=== PATIENT | female | born 1980 | race Caucasian/White ===

== ENCOUNTER 2021-03-25 08:45 | Emergency (ER) | payer OTHER, SELFPAY ==
--- NOTE | ~2021-03-25 | CT_ITS ---
EXAMINATION: CT HEAD WITHOUT CONTRAST CLINICAL INFORMATION: Fall. Loss of consciousness. Rule out fracture or bleed. COMPARISON: Previous head CT June 2012 TECHNIQUE: Contiguous axial imaging was performed from the skull base to vertex without intravenous administration of contrast. This CT examination was performed using dose optimization techniques as appropriate, variously including the following: *Automated exposure control *Adjustment of mA and/or kV according to patient size (this includes techniques or standardized protocols for targeted exams where dose is matched to indication/reason for exam; i.e. extremities or head) *Use of iterative reconstruction technique DLP: 427 mGy-cm FINDINGS: There is no evidence of an extra-axial collection. There is no evidence for intra-axial or extra-axial hemorrhage. The ventricles and extra-axial CSF spaces are appropriate. Gallardo-white matter differentiation is normal. 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 This is unchanged from June 2012 exam. No other mass, mass effect or infarct is seen. Review of bone windows is normal. No skull fracture is seen. Paranasal sinuses, mastoid air cells and middle ears are clear. CT/CT head/brain wo con IMPRESSION: No acute findings.
--- NOTE | ~2021-03-25 | XR_ITS ---
EXAMINATION: XR CHEST CLINICAL INFORMATION: Fall. Chest pain. Rule out rib fracture. COMPARISON: None TECHNIQUE: 2 views of the chest were obtained. FINDINGS: The cardiac and mediastinal contours are normal. The lungs are clear. There is no pleural effusion or pneumothorax. Bony structures are unremarkable. No rib fracture is seen. XR/XR chest 2V IMPRESSION: No evidence for acute disease in the chest. No rib fracture seen.
--- NOTE | ~2021-03-25 | CT_ITS ---
EXAMINATION: CT CERVICAL SPINE WITHOUT CONTRAST CLINICAL INFORMATION: Neck pain. Loss of consciousness and fall. Rule out fracture. COMPARISON: Previous cervical spine CT June 2012 TECHNIQUE: Axial images through the cervical spine without contrast. Sagittal and coronal reconstructions the technologist workstation were performed. This CT examination was performed using dose optimization techniques as appropriate, variously including the following: *Automated exposure control *Adjustment of mA and/or kV according to patient size (this includes techniques or standardized protocols for targeted exams where dose is matched to indication/reason for exam; i.e. extremities or head) *Use of iterative reconstruction technique DLP: 428 mGy-cm FINDINGS: Bone alignment is normal. No fracture or dislocation is seen. The disc spaces are normal. Prevertebral soft tissues are normal. There is shotty cervical lymphadenopathy. Visualized lung apices are clear.. CT/CT cervical spine wo con IMPRESSION: No fracture or dislocation seen..
[2021-03-25 08:55] VITALS: BP 158/90; PULSE 92; O2SAT 100
[2021-03-25 08:56] VITALS: BP 162/89; PULSE 98; RESP 20; O2SAT 99; BMI 37.3
--- NOTE | 2021-03-25 09:06 | ECG_ITS ---
Test Reason : SYNCOPE Blood Pressure : / mmHG Vent. Rate : 088 BPM Atrial Rate : 088 BPM P-R Int : 132 ms QRS Dur : 080 ms QT Int : 358 ms P-R-T Axes : 009 010 035 degrees QTc Int : 433 ms Normal sinus rhythm Normal ECG When compared with ECG of 18-APR-2015 01:03, Borderline criteria for Anteroseptal infarct are no longer Present Referred By: Isaac Martinez Electronically Signed By:FERNANDO MARSHALL MD
--- NOTE | 2021-03-25 09:19 | ED_ITS ---
HPI - General Adult General Chief complaint: Syncope Stated complaint: UNWITNESSED FALL W/SORE NECK/BADY ACHES Time Seen by Provider: 03/25/21 09:06 Source: patient and EMS Mode of arrival: EMS Limitations: no limitations History of Present Illness HPI narrative: 41-year-old female who presents emergency department for evaluation of a syncopal episode. The patient states she has been under increased stress since she found out that her has been cheating on her. She states she has had no food to eat since Tuesday (5 days prior to evaluation). She states that she went to work today and got on the elevator. She got off on the 2nd floor and then she remembers waking up on the floor with co-worker surrounding her but has no memory of what happened prior to her passing out. Here in the emergency department she states that she is having a headache, the headache is a throbbing sensation that is located on the back her head, the headache is constant and 6/10. She is also complaining of neck pain. She states that she has been having abdominal pain for several days, she points to her lower abdomen when asked to localize the pain, the pain is a constant pressure-like sensation. She states she has had vomiting too numerous to count episodes. She denied fever, chills, chest pain, shortness of breath, dyspnea on exertion, frequency, urgency or dysuria. Related Data Previous Rx's Medication Instructions Recorded ondansetron 4 mg PO Q6-8H PRN #14 tab 03/25/21 Allergies Allergy/AdvReac Type Severity Reaction Status Date / Time morphine [MORPHINE] Allergy Mild HIVES Unverified 07/24/20 16:39 meperidine [Demerol] Allergy Unknown Verified 01/06/17 00:00 SHELLFISH Allergy Severe THROAT Uncoded 07/24/20 16:39 CLOSED From DEMEROL Allergy Mild HIVES Uncoded 07/24/20 16:39 shellfish Allergy Unknown Uncoded 01/06/17 00:00 Review of Systems Review of Systems: Yes all other systems are reviewed and are negative [facility] Past Medical History [facility] Narrative: Past medical history: Diabetes mellitus type 2 controlled by diet and weight loss, 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 The patient denies tobacco use, she drinks alcohol occasionally, she denies drug use. Social History Social History Advance Directives: Yes Advance Directives Information Provided: Yes Advance Directives on File: No Physical Exam Vital Signs: Vital Signs: Last Vital Signs Pulse 89 03/25/21 10:00 Resp 18 03/25/21 10:00 BP 135/83 03/25/21 10:00 Pulse Ox 97 03/25/21 10:00 Body Mass Index 37.3 Const: Other: Patient is in a C-collar General: cooperative, no acute distress, alert and awake Orientation/consciousness: oriented to person and oriented to place Limitations: no limitations HENMT: Other: Head is normal cephalic atraumatic, she does have tenderness with palpation over the occipital area of her head with no hematoma Head: Yes normal to inspection and Yes normocephalic Ears: external ears normal General nose exam: Normal external nose present Face and sinus: Yes normal facial exam Mouth: Normal oral and palatal mucosa present Throat: Yes posterior oropharynx normal Eyes: General: appearance normal, both eyes and all related structures Periorbital: periorbital findings normal Eyelids: Yes eyelids normal Conjunctivae: conjunctivae normal Sclerae: sclerae normal Corneas: corneas normal Pupils: Equal, round and reactive pupils present Direct Ophthalmoscopy: normal light reflex Neck: Other: Tender C-spine Neck: Yes normal visual inspection Lymphatic: no lymphadenopathy noted Chest: Chest palpation & inspection: normal inspection of the chest and normal palpation of entire chest wall Resp: Effort & Inspection: normal respiratory effort, abnormal respiratory pattern, no audible wheezes and no respiratory distress Auscultation: clear to auscultation bilaterally, no crackles, no rales, no rhonchi and no wheezes Cardio: Rate: regular rate Rhythm: regular rhythm Heart sounds: S1 normal heart sound present, S2 normal heart sound present and Murmur heart sound present GI: Inspection: No distended Palpation (GI): Soft to palpation, nontender, no guarding and No hepatosplenomegaly present Auscultation: normal bowel sounds : General: Yes no CVA tenderness Back/Spine/Pelvis: Back: no CVA tenderness Cervical Spine: normal cervical lordosis Thoracic/Lumbar Spine: thoracic and lumbar spine normal to inspection Skin: General skin exam: no rashes or lesions noted Lesions: no lesions Rashes: no rashes Wounds: no wounds Neuro: General: oriented to person and oriented to place Cranial nerves: Yes CN's II-XII intact bilaterally and Yes Equal, round and reactive pupils present Cognition (Neuro): normal cognition Motor exam (neuro): 5/5 motor strength present throughout Extrem: General: Yes normal to inspection, Yes full ROM, Yes no pedal edema and Yes no calf tenderness Psych: Appearance: grossly normal Mental Status: mental status grossly normal Speech and movement: Clear speech present Affect: normal affect Attitude: cooperative Thought process: Normal thought process present Thought content: Normal thought content present Course Course Course Narrative: 41-year-old female who presents emergency department for evaluation anorexia x5 days with nausea and vomiting, unwitnessed syncopal episode at work. The patient's physical examination did reveal tenderness with palpation of the occiputal area of her scalp as well as C-spine tenderness. I ordered laboratory evaluation to include CBC, CMP, lipase, PT/INR, PTT, chest x- ray, CT scan of the head and neck. She was ordered to get normal saline IV x2 L and Zofran 4 mg IV. 1119: 12 EKG was unremarkable. Laboratory evaluation was also unremarkable. CT scan of the head and neck were negative. Chest x-ray was unremarkable. Patient is feeling better after treatment with normal saline and Zofran. Galen beaver will be discharged home with printed and verbal instructions on syncope, nausea vomiting and dehydration. She was advised to take Zofran ODT every 6-8 hours as needed for nausea and vomiting, stay on a jourdan diet for 24 hours and to take Tylenol and ibuprofen for her pain. She is given a note not return to work until Tuesday03/30/2021. Medical Decision Making Lab Data Result diagrams: 03/25/21 09:42 03/25/21 09:42 Labs: Lab Results 03/25/21 03/25/21 03/25/21 Range/Units 09:42 09:42 09:42 WBC 11.9 H (4.8-10.8) X10*3/uL RBC 4.74 (4.20-5.50) X10*6/uL Hgb 13.7 (12.0-16.0) g/dl Hct 42.0 (37-47) % MCV 88.6 (80-98) fL MCH 28.9 (27.0-33.0) pg MCHC 32.6 (31.0-35.0) g/dl RDW 12.3 (11.0-16.0) % Plt Count 287 (160-400) X10*3/uL MPV 10.9 (9.4-12.3) fL Immature Gran % (Auto) 0.4 (0.0-0.4) % Neut % (Auto) 82.2 H (45-73) % Lymph % (Auto) 9.8 L (20-40) % [place] % (Auto) 7.1 (2-11) % Eos % (Auto) 0.2 (0-4) % Baso % (Auto) 0.3 (0-2) % Lymph # (Auto) 1.2 (1.2-4.9) X10*3/uL [place] # (Auto) 0.8 (0.1-1.2) X10*3/uL Eos # (Auto) 0.0 (0.0-0.4) X10*3/uL Baso # (Auto) 0.0 (0.0-0.2) X10*3/uL Abs Immat Gran (auto) 0.05 H (0.00-0.03) X10*3/uL Absolute Neuts (auto) 9.8 H (2.0-8.3) X10*3/uL Absolute Nucleated RBC 0.000 (0.0-0.012) X10*3/uL Nucleated RBC % (auto) 0.0 (0.0-0.2) /100WBC PT 13.6 H (10.8-13.0) SEC INR 1.1 (0.9-1.1) APTT 34.0 (24.1-38.0) SEC Sodium 139 (135-145) mmol/L Potassium 3.7 (3.3-5.1) mmol/L Chloride 104 (96-108) mmol/L Carbon Dioxide 25 (22-29) mmol/L Anion Gap 14 (12-20) BUN 14 (9-16) mg/dL Creatinine 0.76 (0.5-1.4) mg/dL Estim Creat Clear Calc 92.4 Estimated GFR > 60 Random Glucose 105 (60-115) mg/dL Calcium 9.2 (8.4-10.2) mg/dL Total Bilirubin 1.1 H (0.0-1.0) mg/dL AST 22 (5-31) U/L ALT 19 (0-31) U/L Alkaline Phosphatase 82 (39-117) U/L Troponin I High Sens (<3.5-17.0) ng/L Total Protein 7.4 (6.5-8.0) g/dL Albumin 4.4 (3.5-5.0) g/dL Lipase 31 (8-78) U/L 03/25/21 Range/Units 09:42 WBC (4.8-10.8) X10*3/uL RBC (4.20-5.50) X10*6/uL Hgb (12.0-16.0) g/dl Hct (37-47) % MCV (80-98) fL MCH (27.0-33.0) pg MCHC (31.0-35.0) g/dl RDW (11.0-16.0) % Plt Count (160-400) X10*3/uL MPV (9.4-12.3) fL Immature Gran % (Auto) (0.0-0.4) % Neut % (Auto) (45-73) % Lymph % (Auto) (20-40) % [place] % (Auto) (2-11) % Eos % (Auto) (0-4) % Baso % (Auto) (0-2) % Lymph # (Auto) (1.2-4.9) X10*3/uL [place] # (Auto) (0.1-1.2) X10*3/uL Eos # (Auto) (0.0-0.4) X10*3/uL Baso # (Auto) (0.0-0.2) X10*3/uL Abs Immat Gran (auto) (0.00-0.03) X10*3/uL Absolute Neuts (auto) (2.0-8.3) X10*3/uL Absolute Nucleated RBC (0.0-0.012) X10*3/uL Nucleated RBC % (auto) (0.0-0.2) /100WBC PT (10.8-13.0) SEC INR (0.9-1.1) APTT (24.1-38.0) SEC Sodium (135-145) mmol/L Potassium (3.3-5.1) mmol/L Chloride (96-108) mmol/L Carbon Dioxide (22-29) mmol/L Anion Gap (12-20) BUN (9-16) mg/dL Creatinine (0.5-1.4) mg/dL Estim Creat Clear Calc Estimated GFR Random Glucose (60-115) mg/dL Calcium (8.4-10.2) mg/dL Total Bilirubin (0.0-1.0) mg/dL AST (5-31) U/L ALT (0-31) U/L Alkaline Phosphatase (39-117) U/L Troponin I High Sens < 3.5 (<3.5-17.0) ng/L Total Protein (6.5-8.0) g/dL Albumin (3.5-5.0) g/dL Lipase (8-78) U/L Discharge Plan Discharge Clinical Impression: Vasovagal syncope, Nausea, Acute dehydration Closed head injury Qualifiers: Encounter type: initial encounter Qualified Code(s): S09.90XA - Unspecified injury of head, initial encounter Patient Disposition: Home, Self-Care Instructions: Syncope (ED), Head Injury (ED) Additional Instructions: Your evaluation today was unremarkable. You had a syncopal (fainting) episode most likely secondary to being dehydrated which was caused by your vomiting. Take Zofran (ondansetron) ODT 4 mg, 1 pill dissolved in your mouth every 6-8 hours as needed for nausea and vomiting. Stay on a brat diet for 24 hours (bananas, rice, applesauce, tea and toast). Take ibuprofen 200 mg pills, 3 pills every 6 hours as needed for pain. Take Tylenol (acetaminophen) 500 mg pills, 2 pills every 4 to 6 hours as needed for pain. Follow-up with your doctor in 2 days. Please return to the emergency department if your symptoms get worse or if you develop any symptoms that are concerning to you. Prescriptions: New ondansetron 4 mg tablet,disintegrating 4 mg PO Q6-8H PRN (Reason: nausea and vomiting) Qty: 14 RF: 0 Stand Alone Forms: Work/School Release
[2021-03-25] MEDS: 0.9 % Sodium Chloride 1,000 ML 999 ML IV (09:44)
[2021-03-25] MEDS: ondansetron HCL 4 MG/2 ML VIAL IVPUSH (09:45)
[2021-03-25 10:00] VITALS: BP 135/83; PULSE 89; RESP 18; O2SAT 97
[2021-03-25 10:00] LABS: MANUAL DIFF FLAG NO
[2021-03-25 10:02] LABS: Basophils Percent Auto 0.3 % (0-2); Eosinophils Percent Auto 0.2 % (0-4); Hemoglobin 13.7 g/dl (12.0-16.0); Imm Gran Abs Auto 0.05 X10*3/uL (0.00-0.03); Imm Gran Pct Auto 0.4 % (0.0-0.4); Lymphocytes Absolute Auto 1.2 X10*3/uL (1.2-4.9); Lymphocytes Percent Auto 9.8 % (20-40); Mean Corpuscular HGB Conc 32.6 g/dl (31.0-35.0); Mean Corpuscular Hemoglobin 28.9 pg (27.0-33.0); Mean Corpuscular Volume 88.6 fL (80-98); Mean Platelet Volume 10.9 fL (9.4-12.3); Monocytes Absolute Auto 0.8 X10*3/uL (0.1-1.2); Monocytes Percent Auto 7.1 % (2-11); Neutrophils Absolute Auto 9.8 X10*3/uL (2.0-8.3); Neutrophils Percent Auto 82.2 % (45-73); Platelet Count 287 X10*3/uL (160-400); Red Blood Count 4.74 X10*6/uL (4.20-5.50); Red Cell Distribution Width 12.3 % (11.0-16.0); White Blood Count 11.9 X10*3/uL (4.8-10.8)
[2021-03-25 10:12] LABS: INTERNATIONAL NORM RATIO 1.1 (0.9-1.1); Prothrombin Time 13.6 SEC (10.8-13.0)
[2021-03-25 10:28] LABS: Alanine Aminotransferase 19 U/L (0-31); Albumin Level 4.4 g/dL (3.5-5.0); Alkaline Phosphatase 82 U/L (39-117); Anion Gap 14 (12-20); Aspartate Amino Transferase 22 U/L (5-31); Bilirubin Total 1.1 mg/dL (0.0-1.0); Blood Urea Nitrogen 14 mg/dL (9-16); Calcium 9.2 mg/dL (8.4-10.2); Carbon Dioxide 25 mmol/L (22-29); Chloride 104 mmol/L (96-108); Creatinine Clr Calc Pharmacy 92.4; Estimated Glomerular Filt Rate > 60; Glucose Random 105 mg/dL (60-115); Lipase 31 U/L (8-78); Potassium 3.7 mmol/L (3.3-5.1); Sodium 139 mmol/L (135-145); Total Protein 7.4 g/dL (6.5-8.0)
[2021-03-25 10:30] LABS: Troponin-I High Sensitivity < 3.5 ng/L (<3.5-17.0)
[2021-03-25 11:35] LABS: Glucose Urine UA NEG (NEG); Leukocyte Esterase Urine NEG (NEG); Nitrite Urine NEG (NEG); Specific Gravity - Urine 1.015 (1.005-1.025); Urine Blood NEG (NEG); Urine Ketones 15 MG/DL (NEG); Urine Protein NEG (NEG-TRACE)
[2021-03-25 11:37] LABS: Appearance Urine CLEAR; Color Urine YELLOW
== END 2021-03-25 11:53 | disposition home or self-care (01) ==
PROVIDERS: Emergency Provider Emergency Medicine Emergency Medical Services; PCP Internal Medicine
DX: S09.90XA Unspecified injury of head, initial encounter (principal); R55 Syncope and collapse; E86.0 Dehydration; M54.2 Cervicalgia; G44.309 Post-traumatic headache, unspecified, not intractable; W18.30XA Fall on same level, unspecified, initial encounter; Y93.9 Activity, unspecified; Y92.9 Unspecified place or not applicable; Y99.9 Unspecified external cause status; Z79.899 Other long term (current) drug therapy
CPT/HCPCS: 36415; 70450; 71046; 72125; 80053; 81003; 83690; 84484; 85025; 85610; 85730; 93005; 96365; 96375; 99284; J2405

== ENCOUNTER 2022-12-14 13:41 | Emergency (ER) | payer OTHER, SELFPAY ==
--- NOTE | 2022-12-14 14:08 | ED_ITS ---
HPI - General Adult General Chief complaint: General Medical <Zhane Pollock CNP - Last Filed: 12/14/22 14:14> Stated complaint: high bp <Zhane Pollock CNP - Last Filed: 12/14/22 14:14> Time Seen by Provider: 12/14/22 16:03 <Zhane Pollock CNP - Last Filed: 12/14/22 14:14> Source: patient <Azam JosephDO giana - Last Filed: 12/14/22 18:09> Mode of arrival: ambulatory <Azam Joseph DO - Last Filed: 12/14/22 18:09> Limitations: no limitations <Azam Joseph DO - Last Filed: 12/14/22 18:09> History of Present Illness HPI narrative: 42-year-old female presents emergency department with multiple complaints. She states she woke up feeling strange. 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 Patient recent did increase her metoprolol. She denies any fevers chills neck stiffness chest pain cough or runny nose. States she does have associated headache she did take some ibuprofen approximately 4 hours prior to my evaluation. Patient does have a history of headaches. <Azam Joseph DO - Last Filed: 12/14/22 18:09> Onset (ago): hour(s) <Azam Joseph DO - Last Filed: 12/14/22 18:09> Related Data Home medications: Previous Rx's Medication Instructions Recorded ondansetron 4 mg disintegrating 4 mg PO Q6-8H PRN nausea and 03/25/21 tablet vomiting #14 tabs <Zhane Pollock CNP - Last Filed: 12/14/22 14:14> Allergies/adverse reactions: Allergies Allergy/AdvReac Type Severity Reaction Status Date / Time morphine [MORPHINE] Allergy Mild HIVES Unverified 12/14/22 13:38 meperidine [Demerol] Allergy Unknown Verified 12/14/22 13:38 SHELLFISH Allergy Severe THROAT Uncoded 12/14/22 13:38 CLOSED From DEMEROL Allergy Mild HIVES Uncoded 12/14/22 13:38 shellfish Allergy Unknown Uncoded 12/14/22 13:38 <Zhane Pollock CNP - Last Filed: 12/14/22 14:14> Review of Systems Review of Systems: Review of systems: General: Patient denies any fever chills recent illness or falls Musculoskeletal: Denies back pain or body aches or other injuries HEENT: headache denies, runny nose, ear pain Respiratory: denies shortness of breath, cough Cardiovascular: no chest pain or palpitations : denies dysuria, frequency Abdomen: nausea no vomiting denies abdominal pain Extremities: no swelling, no pain Skin: no diaphoresis <Azam Joseph DO - Last Filed: 12/14/22 18:09> Yes all other systems are reviewed and are negative <Azam Joseph DO - Last Filed: 12/14/22 18:09> PMFSH Social History Social History: Social History (System 12/14/22 @ 13:38 by Vidya Davis) Advance Directives: No <Zhane Pollock CNP - Last Filed: 12/14/22 14:14> Physical Exam ED Vital Signs: Vital Signs - 24 hr 12/14/22 14:09 12/14/22 16:11 Temperature 97.4 F Pulse Rate 78 74 Respiratory Rate 18 Blood Pressure 146/103 H 146/84 H Pulse Oximetry 100 Oxygen Delivery Method Room Air BMI result Body Mass Index 43.0 <Zhane Pollock CNP - Last Filed: 12/14/22 14:14> Vital Signs - 24 hr 12/14/22 14:09 12/14/22 16:11 Temperature 97.4 F Pulse Rate 78 74 Respiratory Rate 18 Blood Pressure 146/103 H 146/84 H Pulse Oximetry 100 Oxygen Delivery Method Room Air BMI result Body Mass Index 43.0 <Azam Joseph DO - Last Filed: 12/14/22 18:09> Neurological exam: CN II- XII tested. Patient is alert and oriented to person place and time. Patient has no dysphagia or dysarthia, denies good vision in all four vision price no nystagmus on exam, good strength to upper and lower extremities with normal reflexes to brachioradialis, wrist, patella and achilles. Negative romberg, good finger to nose and heel to chin. General: Well-appearing well-nourished in no signs of distress HEENT: Normocephalic atraumatic Neck: No signs of JVD, no masses no tenderness or lymphadenopathy Cardiovascular: Regular rate and rhythm Respiratory: Clear to auscultation bilaterally Abdomen: Soft nontender no masses Extremities: Normal pedal pulses no signs of edema Skin: Dry warm no rashes Back: No tenderness full ROM <Azam Joseph DO - Last Filed: 12/14/22 18:09> Course Course Course Narrative: This is an RME: Additional HPI, ROS, PE not included below will be deferred to primary provider. Patient is a 42-year-old female who presents emergency department for evaluation of hypertension, severe diffuse headache, dizziness, nausea/ dry heaves, was advised by PCP to come to ED due to hx uncontrolled HTN. Headache since 544 unrelieved with ibuprofen, progressively worsening. Patient had metoprolol succinate increased from 25mg to 50mg 12/06/22, has not checked BP since dosage change. Denies chest pain, shortness of breath, vision changes, neck pain, vomiting. Denies hx of headaches/ migraine. Denies , s/p hysterectomy. Plan: labs, EKG <Zhane Pollock CNP - Last Filed: 12/14/22 14:14> Medications Administered Discontinued Medications Generic Name Dose Route Start Last Admin Trade Name Samanq PRN Reason Stop Dose Admin Acetaminophen 650 mg 12/14/22 16:10 12/14/22 16:36 Acetaminophen 325 Mg Tablet PO 12/14/22 16:11 650 mg ONCE ONE Administration Diphenhydramine HCl 25 mg 12/14/22 16:10 12/14/22 16:37 Diphenhydramine Hcl 50 Mg/Ml Vial IVPUSH 12/14/22 16:11 25 mg ONCE ONE Administration Sodium Chloride 1,000 mls @ 999 mls/hr 12/14/22 16:15 12/14/22 16:36 Ns IV 12/14/22 17:15 999 mls/hr .Q1H1M VIDAL Administration Ketorolac Tromethamine 15 mg 12/14/22 16:10 12/14/22 16:37 Ketorolac Tromethamine 15 Mg/Ml Vial IVPUSH 12/14/22 16:11 15 mg ONCE ONE Administration Metoclopramide HCl 10 mg 12/14/22 16:10 12/14/22 16:37 Metoclopramide Hcl 10 Mg/2 Ml Vial IVPUSH 12/14/22 16:11 10 mg ONCE ONE Administration <Zhane Young Phill, BIOMASS TECHNICIAN - Last Filed: 12/14/22 14:14> Medications Administered Discontinued Medications Generic Name Dose Route Start Last Admin Trade Name Lilian PRN Reason Stop Dose Admin Acetaminophen 650 mg 12/14/22 16:10 12/14/22 16:36 Acetaminophen 325 Mg Tablet PO 12/14/22 16:11 650 mg ONCE ONE Administration Diphenhydramine HCl 25 mg 12/14/22 16:10 12/14/22 16:37 Diphenhydramine Hcl 50 Mg/Ml Vial IVPUSH 12/14/22 16:11 25 mg ONCE ONE Administration Sodium Chloride 1,000 mls @ 999 mls/hr 12/14/22 16:15 12/14/22 16:36 Ns IV 12/14/22 17:15 999 mls/hr .Q1H1M VIDAL Administration Ketorolac Tromethamine 15 mg 12/14/22 16:10 12/14/22 16:37 Ketorolac Tromethamine 15 Mg/Ml Vial IVPUSH 12/14/22 16:11 15 mg ONCE ONE Administration Metoclopramide HCl 10 mg 12/14/22 16:10 12/14/22 16:37 Metoclopramide Hcl 10 Mg/2 Ml Vial IVPUSH 12/14/22 16:11 10 mg ONCE ONE Administration <Azam Joseph DO - Last Filed: 12/14/22 18:09> Medical Decision Making Medical Decision Making MDM Narrative: Labs unremarkable blood pressure is within normal limits I will add on COVID flu and RSV I will give the patient Reglan Benadryl Toradol and Tylenol and reassess. 1807Covid flu and RSV are all negative. She is feeling much better. I will send home. <Azam Joseph DO - Last Filed: 12/14/22 18:09> Differential Diagnosis Differential Diagnoses: The differential diagnosis associated with the presentation includes <Azam Joseph DO - Last Filed: 12/14/22 18:09> Headache migraine blood pressure related to the related dehydrated , Headache unlikely mass has had CT in the past unlikely menigitis or infectios with no fever and non toxic appearance. <Azam Joseph DO - Last Filed: 12/14/22 18:09> Admission/Observation Consideration of admission/observation: Escalation of care including admission/observation considered <Azam Jospeh DO - Last Filed: 12/14/22 18:09> Lab Data MDM Lab Attestation statement: I reviewed the patient's lab results. <Azam Joseph DO - Last Filed: 12/14/22 18:09> Result Diagrams: 12/14/22 14:40 12/14/22 14:40 <Zhane Pollock BIOMASS TECHNICIAN - Last Filed: 12/14/22 14:14> Labs: Lab Results 12/14/22 12/14/22 12/14/22 Range/Units 14:40 14:40 14:40 WBC 13.3 H (4.8-10.8) X10*3/uL RBC 4.77 (4.20-5.50) X10*6/uL Hgb 13.8 (12.0-16.0) g/dl Hct 41.6 (37.0-47.0) % MCV 87.2 (80.0-98.0) fL MCH 28.9 (27.0-33.0) pg MCHC 33.2 (31.0-35.0) g/dl RDW 12.2 (11.0-16.0) % Plt Count 309 (160-400) X10*3/uL MPV 10.5 (9.4-12.3) fL Immature Gran % (Auto) 0.6 H (0.0-0.4) % Neut % (Auto) 83.8 H (45-73) % Lymph % (Auto) 10.4 L (20-40) % [place] % (Auto) 4.5 (2-11) % Eos % (Auto) 0.2 (0-4) % Baso % (Auto) 0.5 (0-2) % Lymph # (Auto) 1.4 (1.2-4.9) X10*3/uL [place] # (Auto) 0.6 (0.1-1.2) X10*3/uL Eos # (Auto) 0.0 (0.0-0.4) X10*3/uL Baso # (Auto) 0.1 (0.0-0.2) X10*3/uL Abs Immat Gran (auto) 0.08 H (0.00-0.03) X10*3/uL Absolute Neuts (auto) 11.1 H (2.0-8.3) x10*3/uL Absolute Nucleated RBC 0.000 (0.0-0.012) X10*3/uL Nucleated RBC % (auto) 0.0 (0.0-0.2) /100WBC Sodium 143 (135-145) mmol/L Potassium 4.0 (3.3-5.1) mmol/L Chloride 107 (96-108) mmol/L Carbon Dioxide 26 (22-29) mmol/L Anion Gap 14 (12-20) BUN 9 (9-16) mg/dL Creatinine 0.70 (0.5-1.4) mg/dL Estim Creat Clear Calc 107.8 Estimated GFR > 60 Random Glucose 111 (60-115) mg/dL Calcium 9.3 (8.4-10.2) mg/dL Total Bilirubin 0.4 (0.0-1.0) mg/dL AST 12 (5-31) U/L ALT 16 (0-31) U/L Alkaline Phosphatase 98 (39-117) U/L Troponin I High Sens < 3.5 (<3.5-17.0) ng/L Total Protein 7.1 (6.5-8.0) g/dL Albumin 4.3 (3.5-5.0) g/dL Urine Color Urine Appearance Urine pH (5.0-9.0) Ur Specific [place] (1.005-1.025) Urine Protein (Neg-Trace) mg/dL Urine Glucose (UA) (Negative) mg/dL Urine Ketones (Negative) mg/dL Urine Blood (Negative) Urine Nitrite (Negative) Ur Leukocyte Esterase (Negative) Urine RBC (0-2) /HPF Urine WBC (0-5) /HPF Ur Squamous Epith Cells (0-2) /HPF Urine Bacteria (None Seen) Hyaline Casts (0-2) /LPF Influenza Type A (PCR) (Negative) Influenza Type B (PCR) (Negative) RSV RNA Qual (PCR) (Negative) SARS-CoV-2 RNA (RT-PCR) (Negative) 12/14/22 12/14/22 Range/Units 14:40 17:11 WBC (4.8-10.8) X10*3/uL RBC (4.20-5.50) X10*6/uL Hgb (12.0-16.0) g/dl Hct (37.0-47.0) % MCV (80.0-98.0) fL MCH (27.0-33.0) pg MCHC (31.0-35.0) g/dl RDW (11.0-16.0) % Plt Count (160-400) X10*3/uL MPV (9.4-12.3) fL Immature Gran % (Auto) (0.0-0.4) % Neut % (Auto) (45-73) % Lymph % (Auto) (20-40) % [place] % (Auto) (2-11) % Eos % (Auto) (0-4) % Baso % (Auto) (0-2) % Lymph # (Auto) (1.2-4.9) X10*3/uL [place] # (Auto) (0.1-1.2) X10*3/uL Eos # (Auto) (0.0-0.4) X10*3/uL Baso # (Auto) (0.0-0.2) X10*3/uL Abs Immat Gran (auto) (0.00-0.03) X10*3/uL Absolute Neuts (auto) (2.0-8.3) x10*3/uL Absolute Nucleated RBC (0.0-0.012) X10*3/uL Nucleated RBC % (auto) (0.0-0.2) /100WBC Sodium (135-145) mmol/L Potassium (3.3-5.1) mmol/L Chloride (96-108) mmol/L Carbon Dioxide (22-29) mmol/L Anion Gap (12-20) BUN (9-16) mg/dL Creatinine (0.5-1.4) mg/dL Estim Creat Clear Calc Estimated GFR Random Glucose (60-115) mg/dL Calcium (8.4-10.2) mg/dL Total Bilirubin (0.0-1.0) mg/dL AST (5-31) U/L ALT (0-31) U/L Alkaline Phosphatase (39-117) U/L Troponin I High Sens (<3.5-17.0) ng/L Total Protein (6.5-8.0) g/dL Albumin (3.5-5.0) g/dL Urine Color Yellow Urine Appearance Clear Urine pH 7.5 (5.0-9.0) Ur Specific [place] <= 1.005 (1.005-1.025) Urine Protein Negative (Neg-Trace) mg/dL Urine Glucose (UA) Negative (Negative) mg/dL Urine Ketones Negative (Negative) mg/dL Urine Blood Negative (Negative) Urine Nitrite Negative (Negative) Ur Leukocyte Esterase Moderate (2+) H (Negative) Urine RBC 0-2 (0-2) /HPF Urine WBC 0-5 (0-5) /HPF Ur Squamous Epith Cells 3-5 (0-2) /HPF Urine Bacteria None Seen (None Seen) Hyaline Casts 0-2 (0-2) /LPF Influenza Type A (PCR) NEGATIVE (Negative) Influenza Type B (PCR) NEGATIVE (Negative) RSV RNA Qual (PCR) NEGATIVE (Negative) SARS-CoV-2 RNA (RT-PCR) NEGATIVE (Negative) <Zhane Pollock, NETO - Last Filed: 12/14/22 14:14> Lab Results 12/14/22 12/14/22 12/14/22 Range/Units 14:40 14:40 14:40 WBC 13.3 H (4.8-10.8) X10*3/uL RBC 4.77 (4.20-5.50) X10*6/uL Hgb 13.8 (12.0-16.0) g/dl Hct 41.6 (37.0-47.0) % MCV 87.2 (80.0-98.0) fL MCH 28.9 (27.0-33.0) pg MCHC 33.2 (31.0-35.0) g/dl RDW 12.2 (11.0-16.0) % Plt Count 309 (160-400) X10*3/uL MPV 10.5 (9.4-12.3) fL Immature Gran % (Auto) 0.6 H (0.0-0.4) % Neut % (Auto) 83.8 H (45-73) % Lymph % (Auto) 10.4 L (20-40) % [place] % (Auto) 4.5 (2-11) % Eos % (Auto) 0.2 (0-4) % Baso % (Auto) 0.5 (0-2) % Lymph # (Auto) 1.4 (1.2-4.9) X10*3/uL [place] # (Auto) 0.6 (0.1-1.2) X10*3/uL Eos # (Auto) 0.0 (0.0-0.4) X10*3/uL Baso # (Auto) 0.1 (0.0-0.2) X10*3/uL Abs Immat Gran (auto) 0.08 H (0.00-0.03) X10*3/uL Absolute Neuts (auto) 11.1 H (2.0-8.3) x10*3/uL Absolute Nucleated RBC 0.000 (0.0-0.012) X10*3/uL Nucleated RBC % (auto) 0.0 (0.0-0.2) /100WBC Sodium 143 (135-145) mmol/L Potassium 4.0 (3.3-5.1) mmol/L Chloride 107 (96-108) mmol/L Carbon Dioxide 26 (22-29) mmol/L Anion Gap 14 (12-20) BUN 9 (9-16) mg/dL Creatinine 0.70 (0.5-1.4) mg/dL Estim Creat Clear Calc 107.8 Estimated GFR > 60 Random Glucose 111 (60-115) mg/dL Calcium 9.3 (8.4-10.2) mg/dL Total Bilirubin 0.4 (0.0-1.0) mg/dL AST 12 (5-31) U/L ALT 16 (0-31) U/L Alkaline Phosphatase 98 (39-117) U/L Troponin I High Sens < 3.5 (<3.5-17.0) ng/L Total Protein 7.1 (6.5-8.0) g/dL Albumin 4.3 (3.5-5.0) g/dL Urine Color Urine Appearance Urine pH (5.0-9.0) Ur Specific [place] (1.005-1.025) Urine Protein (Neg-Trace) mg/dL Urine Glucose (UA) (Negative) mg/dL Urine Ketones (Negative) mg/dL Urine Blood (Negative) Urine Nitrite (Negative) Ur Leukocyte Esterase (Negative) Urine RBC (0-2) /HPF Urine WBC (0-5) /HPF Ur Squamous Epith Cells (0-2) /HPF Urine Bacteria (None Seen) Hyaline Casts (0-2) /LPF Influenza Type A (PCR) (Negative) Influenza Type B (PCR) (Negative) RSV RNA Qual (PCR) (Negative) SARS-CoV-2 RNA (RT-PCR) (Negative) 12/14/22 12/14/22 Range/Units 14:40 17:11 WBC (4.8-10.8) X10*3/uL RBC (4.20-5.50) X10*6/uL Hgb (12.0-16.0) g/dl Hct (37.0-47.0) % MCV (80.0-98.0) fL MCH (27.0-33.0) pg MCHC (31.0-35.0) g/dl RDW (11.0-16.0) % Plt Count (160-400) X10*3/uL MPV (9.4-12.3) fL Immature Gran % (Auto) (0.0-0.4) % Neut % (Auto) (45-73) % Lymph % (Auto) (20-40) % [place] % (Auto) (2-11) % Eos % (Auto) (0-4) % Baso % (Auto) (0-2) % Lymph # (Auto) (1.2-4.9) X10*3/uL [place] # (Auto) (0.1-1.2) X10*3/uL Eos # (Auto) (0.0-0.4) X10*3/uL Baso # (Auto) (0.0-0.2) X10*3/uL Abs Immat Gran (auto) (0.00-0.03) X10*3/uL Absolute Neuts (auto) (2.0-8.3) x10*3/uL Absolute Nucleated RBC (0.0-0.012) X10*3/uL Nucleated RBC % (auto) (0.0-0.2) /100WBC Sodium (135-145) mmol/L Potassium (3.3-5.1) mmol/L Chloride (96-108) mmol/L Carbon Dioxide (22-29) mmol/L Anion Gap (12-20) BUN (9-16) mg/dL Creatinine (0.5-1.4) mg/dL Estim Creat Clear Calc Estimated GFR Random Glucose (60-115) mg/dL Calcium (8.4-10.2) mg/dL Total Bilirubin (0.0-1.0) mg/dL AST (5-31) U/L ALT (0-31) U/L Alkaline Phosphatase (39-117) U/L Troponin I High Sens (<3.5-17.0) ng/L Total Protein (6.5-8.0) g/dL Albumin (3.5-5.0) g/dL Urine Color Yellow Urine Appearance Clear Urine pH 7.5 (5.0-9.0) Ur Specific [place] <= 1.005 (1.005-1.025) Urine Protein Negative (Neg-Trace) mg/dL Urine Glucose (UA) Negative (Negative) mg/dL Urine Ketones Negative (Negative) mg/dL Urine Blood Negative (Negative) Urine Nitrite Negative (Negative) Ur Leukocyte Esterase Moderate (2+) H (Negative) Urine RBC 0-2 (0-2) /HPF Urine WBC 0-5 (0-5) /HPF Ur Squamous Epith Cells 3-5 (0-2) /HPF Urine Bacteria None Seen (None Seen) Hyaline Casts 0-2 (0-2) /LPF Influenza Type A (PCR) NEGATIVE (Negative) Influenza Type B (PCR) NEGATIVE (Negative) RSV RNA Qual (PCR) NEGATIVE (Negative) SARS-CoV-2 RNA (RT-PCR) NEGATIVE (Negative) <Azam Joseph DO - Last Filed: 12/14/22 18:09> External Record Review External record reviewed: Inpatient record <Azam Joseph DO - Last Filed: 12/14/22 18:09> Prescription Management I considered prescription management with: Other <Azam Joseph DO - Last Filed: 12/14/22 18:09> Discharge Plan Discharge Clinical Impression: Nausea & vomiting, Headache <Zhane Pollock CNP - Last Filed: 12/14/22 14:14> Patient Disposition: Home, Self-Care <Zhane Pollock CNP - Last Filed: 12/14/22 14:14> Instructions: Acute Nausea and Vomiting (ED), Acute Headache (ED), General Headache (ED) <Zhane Pollock CNP - Last Filed: 12/14/22 14:14> Additional Instructions: Please call to follow up with your doctor. If you have any other concerns please return to the ED. <Zhane Pollock CNP - Last Filed: 12/14/22 14:14> Prescriptions: No Action ondansetron 4 mg tablet,disintegrating 4 mg PO Q6-8H PRN (Reason: nausea and vomiting) Qty: 14 0RF <Zhane Pollock CNP - Last Filed: 12/14/22 14:14> Referrals: Gaston Gomez MD [Primary Care Provider] - (Please call to follow up. Your blood pressure was not normal but also not abnormally high. Your labs were normal as well. ) <Zhane Pollock CNP - Last Filed: 12/14/22 14:14> Stand Alone Forms: Work/School Release <Zhane Pollock CNP - Last Filed: 12/14/22 14:14>
[2022-12-14 14:09] VITALS: BP 146/103; PULSE 78; RESP 18; TEMP 36.3; O2SAT 100; BMI 43.0
--- NOTE | 2022-12-14 14:12 | ECG_ITS ---
Test Reason : hypertension Blood Pressure : / mmHG Vent. Rate : 079 BPM Atrial Rate : 079 BPM P-R Int : 156 ms QRS Dur : 088 ms QT Int : 372 ms P-R-T Axes : 042 007 040 degrees QTc Int : 426 ms Normal sinus rhythm Minimal voltage criteria for LVH, may be normal variant ( [place] product ) Borderline ECG When compared with ECG of 25-MAR-2021 09:13, No significant change was found Referred By: Zhane Pollock Electronically Signed By:FERNANDO MARSHALL MD
[2022-12-14 14:45] LABS: MANUAL DIFF FLAG NO
[2022-12-14 14:48] LABS: Appearance Urine Clear; Basophils Absolute Auto 0.1 X10*3/uL (0.0-0.2); Basophils Percent Auto 0.5 % (0-2); Color Urine Yellow; Eosinophils Percent Auto 0.2 % (0-4); Glucose Urine UA Negative (Negative); Hematocrit 41.6 % (37.0-47.0); Hemoglobin 13.8 g/dl (12.0-16.0); Imm Gran Abs Auto 0.08 X10*3/uL (0.00-0.03); Imm Gran Pct Auto 0.6 % (0.0-0.4); Leukocyte Esterase Urine Moderate (2+) (Negative); Lymphocytes Absolute Auto 1.4 X10*3/uL (1.2-4.9); Lymphocytes Percent Auto 10.4 % (20-40); Mean Corpuscular HGB Conc 33.2 g/dl (31.0-35.0); Mean Corpuscular Hemoglobin 28.9 pg (27.0-33.0); Mean Corpuscular Volume 87.2 fL (80.0-98.0); Mean Platelet Volume 10.5 fL (9.4-12.3); Monocytes Absolute Auto 0.6 X10*3/uL (0.1-1.2); Monocytes Percent Auto 4.5 % (2-11); Neutrophils Absolute Auto 11.1 x10*3/uL (2.0-8.3); Neutrophils Percent Auto 83.8 % (45-73); Nitrite Urine Negative (Negative); PH 7.5 (5.0-9.0); Platelet Count 309 X10*3/uL (160-400); Red Blood Count 4.77 X10*6/uL (4.20-5.50); Red Cell Distribution Width 12.2 % (11.0-16.0); Specific Gravity - Urine <= 1.005 (1.005-1.025); Urine Blood Negative (Negative); Urine Ketones Negative (Negative); Urine Protein Negative (Neg-Trace); White Blood Count 13.3 X10*3/uL (4.8-10.8)
[2022-12-14 14:49] LABS: UMIC TRIGGER UACC YES
--- OUTSIDE RECORDS SUMMARY | 2022-12-14 14:51 | XMS_ITS | Continuity of Care Document ---
:1980 Author Organization [facility] Address [address] [place] [address]- Care Team Providers Name Role Phone Gaston Gomez MD Primary Care Physician [place] [facility] [place] 12[place]04/20 [facility] [address] [place], [place] [address] Attending Physician: Gaston Gomez MD Allergies, Adverse Reactions, Alerts Substance Reaction Severity Status morphine Active shellfish Hives Active cranberry Hives Active Immunizations Given and Recorded Vaccine Date Status Refusal Reason influenza virus vaccine, inactivated1 11/10/18 Given influenza virus vaccine, inactivated2 08/07/17 Recorded influenza virus vaccine, inactivated 09/22/15 Given influenza virus vaccine, inactivated3 08/01/14 Given tetanus/diphtheria/pertussis, acel(Tdap) 06/10/13 Given FluLaval (oldterm) 08/11/09 Given Hepatitis B Vaccine (old term)4 08/16/08 Given Hepatitis B Vaccine (old term) 06/27/08 Given tetanus-diphtheria toxoids (Td)5 09/08/07 Given 1Result Comment: [11/10/2018] given w/out incident [facility]:[id number] History: per pt. received @ [id number] Comment: [08/01/2014] given w/out [id number] Note: 2ND HEP B [id number] Note: mass bio Medications loratadine 10 mg oral tablet 10 mg, 1, tablet, By Mouth, Daily, # 14 tablet, Refills 0, Tot. Refills 0, Maintenance, 12/09/19 11:00:00 EST, Route to Pharmacy Electronically, [facility] #[id number], 154, cm, 12/09/19 10:31:00 EST, Height, 92.6, kg, 12/09/19 10:31:00 EST, Dry... Start Date: 12/09/19 Stop Date: 12/23/19 Status: OrderedZithromax Z-Nj 250 mg oral tablet See Instructions, as directed on package labeling, # 1 pack/packet, 0 Refills, Maintenance, 12/01/2109:45:00 EST, [facility] #[id number], Partial fill upon patient request if the prescription is for a schedule II opioid drug., 154, cm, 12/23/19... 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 Belem Blount IV Social History Social History Type Response Smoking Status Never (less than 100 in life time) entered on: 12/07/19 Sex
--- OUTSIDE RECORDS SUMMARY | 2022-12-14 14:51 | XMS_ITS | Continuity of Care Document ---
:1980 Author Organization [facility] Address [address] [place] [address]- Care Team Providers Name Role Phone Gaston Gomez MD Primary Care Physician Encounter [facility] [place] Date(s): 12/01/20 - 12/31/20 [facility] [address] [place], [place] [address] Allergies, Adverse Reactions, Alerts Substance Reaction Severity [...] Given 1Result Comment: [11/10/2018] given w/out incident ndc:[id number] History: per pt. received @ [id number] Comment: [08/01/2014] given w/out [id number] Note: 2ND HEP B [id number] Note: mass bio Medications loratadine 10 mg oral tablet 10 mg, 1, tablet, By Mouth, Daily, # 14 tablet, Refills 0, Tot. Refills 0, Maintenance, 12/09/19 11:00:00 EST, Route to Pharmacy Electronically, [facility] #[id number], 154, cm, 12/09/19 10:31:00 EST, Height, 92.6, kg, 12/09/19 10:31:00 EST, Dry... Start Date: 12/09/19 Stop Date: 12/23/19 Status: OrderedZithromax Z-Nj 250 mg oral tablet See Instructions, as directed on package labeling, # 1 pack/packet, 0 Refills, Maintenance, 12/01/2109:45:00 EST, [facility] #[id number], Partial fill upon patient request if the [...]
--- OUTSIDE RECORDS SUMMARY | 2022-12-14 14:51 | XMS_ITS | Continuity of Care Document ---
:1980 Author Organization [facility] Address [address] [place] [address]- Care Team Providers Name Role Phone Gaston Gomez MD Primary Care Physician Encounter [facility] [place] Date(s): 12/09/19 - 12/16/19 [facility] [address] [place] [address]- [facility] Attending Physician: César Staton MD Allergies, Adverse Reactions, Alerts Substance Reaction [...] Given 1Result Comment: [11/10/2018] given w/out incident ndc:[id number] History: per pt. received @ [id number] Comment: [08/01/2014] given w/out [id number] Note: 2ND HEP B [id number] Note: mass bio Medications loratadine 10 mg oral tablet 10 mg, 1, tablet, By Mouth, Daily, # 14 tablet, Refills 0, Tot. Refills 0, Maintenance, 12/09/19 11:00:00 EST, Route to Pharmacy Electronically, [facility] #[id number], 154, cm, 12/09/19 10:31:00 EST, Height, 92.6, kg, 12/09/19 10:31:00 EST, Dry... Start Date: 12/09/19 Stop Date: 12/23/19 Status: Ordered Problem List Condition Effective Dates [...] by endovascular surgeon Dr. Belem Blount IV Vital Signs Most recent to oldest [Reference Range]: 1 Height 154 cm (12/09/19 10:31 AM) Weight 92.6 kg (12/09/19 10:31 AM) Oxygen Saturation [94-100 %] 100 % (12/09/19 10:31 AM) Pulse Rate [55-90 bpm] 81 bpm (12/09/19 10:31 AM) Body Mass Index [18.5-24.99] 39.05 *>HHI* (12/09/19 10:31 AM) Blood Pressure [90-138/55-84 mm Hg] 141/104 mm Hg *H* (12/09/19 10:31 AM) Respiratory Rate [16-30 br/min] 18 br/min (12/09/19 10:31 AM) Temperature [96.8-100.4 DegF] 98.2 DegF (12/09/19 10:31 AM) Mode of Delivery (Oxygen) Room air (12/09/19 10:31 AM) Blood pressure sites Arm, right (12/09/19 10:31 AM) Temperature Route Oral (12/09/19 10:31 AM) Dry Weight 92.6 kg (12/09/19 10:31 AM) Weight Obtained Via Standing scale (12/09/19 10:31 AM) Dry Weight Obtained Via Standing scale (12/09/19 10:31 AM) Social History Social History Type Response Smoking Status Never (less than 100 in life time) entered on: 12/07/19 Sex
--- OUTSIDE RECORDS SUMMARY | 2022-12-14 14:51 | XMS_ITS | Continuity of Care Document ---
:1980 Author Organization [facility] Address [address] [place] [address]- Care Team Providers Name Role Phone Gaston Gomez MD Primary Care Physician [facility] Date(s): 03/16/22 - 04/15/22 [facility] [address] [place], [place] [address] Allergies, Adverse Reactions, Alerts Substance Reaction Severity Status morphine Active shellfish Hives Active cranberry Hives Active Immunizations Given and Recorded Vaccine Date Status Refusal Reason SARS-CoV-2 (COVID-19) mRNA-1273 vaccine 11/14/21 Recorded influenza virus vaccine, inactivated 09/12/21 Recorded influenza virus vaccine, inactivated1 11/10/18 Given influenza virus vaccine, inactivated2 08/07/17 Recorded influenza virus vaccine, inactivated 09/22/15 Given influenza virus vaccine, inactivated3 08/01/14 Given SARS-CoV-2 (COVID-19) Ad26 vaccine 03/08/21 Given hepatitis B adult vaccine 09/24/15 Recorded tetanus/diphtheria/pertussis, acel(Tdap) 06/10/13 Given FluLaval (oldterm) 08/11/09 Given Hepatitis B Vaccine (old term)4 08/16/08 Given Hepatitis B Vaccine (old term) 06/27/08 Given tetanus-diphtheria toxoids (Td)5 09/08/07 Given 1Result Comment: [11/10/2018] given w/out incident [facility] [place]:[id number] History: per pt. received @ txmebles4Aktidb Comment: [08/01/2014] given w/out skthnwam0Psczv Note: 2ND HEP B [id number] Note: mass bio Medications loratadine 10 mg oral tablet 10 mg, 1, tablet, By Mouth, Daily, # 14 tablet, Refills 0, Tot. Refills 0, Maintenance, 12/09/19 11:00:00 EST, Route to Pharmacy Electronically, [facility] #[id number], 154, cm, 12/09/19 10:31:00 EST, Height, 92.6, [...] Kidney stone on right side(Confirmed) 01/26/14 Active Obese class II(Confirmed) Active Obesity(Confirmed) Active Reduction of closed nasal septal Active fracture(Confirmed) Herpes simplex type 1 antibody 03/15/22 Active positive(Confirmed) 1seen by endovascular surgeon Dr. Belem Blount IV Social History Social History Type Response Smoking Status Never (less than 100 in life time) entered on: 12/07/19 Sex
--- OUTSIDE RECORDS SUMMARY | 2022-12-14 14:51 | XMS_ITS | Continuity of Care Document ---
:1980 Author Organization [facility] Address [address] [place] [address]- Care Team Providers Name Role Phone Gaston Gomez MD Primary Care Physician [facility] Date[facility]s): 12/23/19 - 12/23/[address] [address]- [facility] Attending Physician: Haile Ramirez MD Allergies, Adverse Reactions, Alerts Substance Reaction [...] Given 1Result Comment: [11/10/2018] given w/out incident ndc:[id number] History: per pt. received @ svegexie7Oaabup Comment: [08/01/2014] given w/out tbwcwvtq6Oyghq Note: 2ND HEP B [id number] Note: mass bio Medications guaiFENesin 100 mg/5 mL oral liquid 10 mL = 200 mg, By Mouth, Every 4 hours, PRN for cough, # 600 mL, 0 Refills, Acute 12/30/19 11:45:00EST, 12/23/19 11:35:00 EST, Liquid, [id number], 154, cm, 12/23/19 11:08:00 EST, Height, 92, kg, 12/23/19 11:08:00 EST, Dry Weight Start Date: 12/23/19 Stop Date: 12/30/19 Status: Orderedloratadine 10 mg oral tablet 10 mg, 1, tablet, By Mouth, Daily, # 14 tablet, Refills 0, Tot. Refills 0, Maintenance, 12/09/19 11:00:00 EST, Route to Pharmacy Electronically, [facility] #[id number], 154, cm, 12/09/19 10:31:00 EST, Height, 92.6, [...]
--- OUTSIDE RECORDS SUMMARY | 2022-12-14 14:51 | XMS_ITS | Continuity of Care Document ---
:1980 Author Organization [facility] Address [address] [place] [address]- Care Team Providers Name Role Phone Jason ALEXANDER, Gaston Primary Care Physician [facility] Date(s): 03/05/21 - 04/04/21 [facility] [address] [place] [address]- Allergies, Adverse Reactions, Alerts Substance Reaction Severity Status morphine Active shellfish Hives Active cranberry Hives Active Immunizations Given and Recorded Vaccine Date Status Refusal Reason SARS-CoV-2 (COVID-19) Ad26 vaccine 03/08/21 Given influenza virus vaccine, inactivated1 11/10/18 Given influenza virus vaccine, inactivated2 08/07/17 Recorded influenza virus vaccine, inactivated 09/22/15 Given influenza virus vaccine, inactivated3 08/01/14 Given hepatitis B adult vaccine 09/24/15 Recorded tetanus/diphtheria/pertussis, acel(Tdap) 06/10/13 Given FluLaval (oldterm) 08/11/09 Given Hepatitis B Vaccine (old term)4 08/16/08 Given Hepatitis B Vaccine (old term) 06/27/08 Given tetanus-diphtheria toxoids (Td)5 09/08/07 Given 1Result Comment: [11/10/2018] given w/out incident [facility]:[id number] History: per pt. received @ kscnirkr8Embakx Comment: [08/01/2014] given w/out uvncjtrg3Pcnug Note: 2ND HEP B JJGAZIFKD8Degbj Note: mass bio Medications loratadine 10 mg oral tablet 10 mg, 1, tablet, By Mouth, Daily, # 14 tablet, Refills 0, Tot. Refills 0, Maintenance, 12/09/19 11:00:00 EST, Route to Pharmacy Electronically, [facility] #[id number], 154, cm, 12/09/19 10:31:00 EST, Height, 92.6, [...]
--- OUTSIDE RECORDS SUMMARY | 2022-12-14 14:51 | XMS_ITS | Continuity of Care Document ---
:1980 Author Organization [facility] Address [address] [place] [address]- Care Team Providers Name Role Phone Gaston Gomez MD Primary Care Physician Encounter [facility] Date(s): 06/09/22 - 06/16/22 [facility] [address] [place], [place] [address] Attending Physician: Anthony Paul DO Referring Physician: Gaston Gomez MD Allergies, Adverse Reactions, [...] Given 1Result Comment: [11/10/2018] given w/out incident ndc:[id number] History: per pt. received @ fqrcshzu5Grlnwy Comment: [08/01/2014] given w/out gupqxjvo2Cpcuu Note: 2ND HEP B ZKTHYOODK8Ihhre Note: mass bio Medications loratadine 10 mg oral tablet 10 mg, 1, tablet, By Mouth, Daily, # 14 tablet, Refills 0, Tot. Refills 0, Maintenance, 12/09/19 11:00:00 EST, [id number], 154, cm, 12/09/19 10:31:00 EST, Height, 92.6, [...] oldest [Reference Range]: 1 Height 154 cm (06/09/22 5:57 PM) Oxygen Saturation [94-100 %] 98 % (06/09/22 5:57 PM) Pulse Rate [55-90 bpm] 81 bpm (06/09/22 5:57 PM) Blood Pressure [90-138/55-84 mm Hg] 142/91 mm Hg *H* (06/09/22 5:57 PM) Temperature [96.8-100.4 DegF] 97.8 DegF (06/09/22 5:57 PM) Mode of Delivery (Oxygen) Room air (06/09/22 5:57 PM) Blood pressure sites Arm, right (06/09/22 5:57 PM) Temperature Route Temporal (06/09/22 5:57 PM) Social History Social History Type Response Smoking Status Never (less than 100 in life time) entered on: 12/07/19 Sex
--- OUTSIDE RECORDS SUMMARY | 2022-12-14 14:51 | XMS_ITS | Continuity of Care Document ---
:1980 Author Organization [facility] Address [address] [place] [address]- Care Team Providers Name Role Phone Gaston Gomez MD Primary Care Physician [facility] Date[facility]s): 02/02/22 - 04/28/[address] [address] Attending Physician: Gaston Gomez MD Admitting Physician: Gaston Gomez MD Referring Physician: Gaston Gomez MD Allergies, Adverse [...] Given 1Result Comment: [11/10/2018] given w/out incident ndc:[id number] History: per pt. received @ yukuwdbx7Sfbdjx Comment: [08/01/2014] given w/out oiqpbivt2Kqhtb Note: 2ND HEP B YJINMGJHH0Cytfh Note: mass bio Medications loratadine 10 mg oral tablet 10 mg, 1, tablet, By Mouth, Daily, # 14 tablet, Refills 0, Tot. Refills 0, Maintenance, 12/09/19 11:00:00 EST, Route to Pharmacy Electronically, [facility] #[id number], 154, cm, 12/09/19 10:31:00 EST, Height, 92.6, [...]
--- OUTSIDE RECORDS SUMMARY | 2022-12-14 14:51 | XMS_ITS | Continuity of Care Document ---
:1980 Author Organization [facility] Address [address] [place] [address]- Care Team Providers Name Role Phone Gaston Gomez MD Primary Care Physician Encounter [facility] Date(s): 11/19/21 - 11/26/21 [facility] [address] [place] [address]- Encounter Diagnosis COVID-19 virus infection (Discharge Diagnosis) - 11/19/21 Attending Physician: Gaston Gomez MD Allergies, Adverse [...] Given 1Result Comment: [11/10/2018] given w/out incident [facility]:[id number] History: per pt. received @ usttfsxe2Pozovv Comment: [08/01/2014] given w/out urxfsopb1Vpqns Note: 2ND HEP B ULGZEVMOL1Ltbfu Note: mass bio Medications loratadine 10 mg oral tablet 10 mg, 1, tablet, By Mouth, Daily, # 14 tablet, Refills 0, Tot. Refills 0, Maintenance, 12/09/19 11:00:00 EST, Route to Pharmacy Electronically, [facility] #[id number], 154, cm, 12/09/19 10:31:00 EST, Height, 92.6, [...] by endovascular surgeon Dr. Belem Blount IV Diagnosis Diagnosis Type Effective Dates Health Status Clinical In formant Service COVID-19 virus Discharge 11/19/21 infection Diagnosis Social History Social History Type Response Smoking Status Never (less than 100 in life time) entered on: 12/07/19 Sex
--- OUTSIDE RECORDS SUMMARY | 2022-12-14 14:51 | XMS_ITS | Continuity of Care Document ---
:1980 Author Organization [facility] Address [address] [place] [address]- Care Team Providers Name Role Phone Gaston Gomez MD Primary Care Physician Encounter [facility] Date(s): 03/12/22 - 03/19/22 [facility] [address] [place], [place] [address] Encounter Diagnosis Obese class II (Discharge Diagnosis) - 03/12/22 Attending Physician: Gaston Gomez MD Allergies, Adverse [...] Given 1Result Comment: [11/10/2018] given w/out incident ndc:[id number] History: per pt. received @ ynpckwqi7Yefxgo Comment: [08/01/2014] given w/out khwsxcsy2Aigos Note: 2ND HEP B CRNDXOLJQ9Kqdwi Note: mass bio Medications loratadine 10 mg oral tablet 10 mg, 1, tablet, By Mouth, Daily, # 14 tablet, Refills 0, Tot. Refills 0, Maintenance, 12/09/19 11:00:00 EST, [id number], 154, cm, 12/09/19 10:31:00 EST, Height, 92.6, [...] Dates Health Status Clinical In formant Service Obese class II Discharge 03/12/22 Diagnosis Vital Signs Most recent to oldest [Reference Range]: 1 2 Height 154 cm 154 cm (03/12/22 9:23 AM) (03/12/22 9:05 AM) Weight 92 kg (03/12/22 9:05 AM) Oxygen Saturation [94-100 %] 100 % (03/12/22 9:05 AM) Pulse Rate [55-90 bpm] 82 bpm (03/12/22 9:05 AM) Body Mass Index [18.5-24.99] 38.79 *>HHI* (03/12/22 9:05 AM) Blood Pressure [90-138/55-84 mm Hg] 118/76 mm Hg 140/ 80 mm Hg (03/12/22 9:23 AM) *H* (03/12/22 9:05 AM) Mode of Delivery (Oxygen) Room air (03/12/22 9:05 AM) Blood pressure sites Arm, left (03/12/22 9:05 AM) Social History Social History Type Response Smoking Status Never (less than 100 in life time) entered on: 12/07/19 Sex
--- OUTSIDE RECORDS SUMMARY | 2022-12-14 14:51 | XMS_ITS | Continuity of Care Document ---
:1980 Author Organization [facility] Address [address] [place] [address]- Care Team Providers Name Role Phone Gaston Gomez MD Primary Care Physician Encounter [facility] Date(s): 03/12/21 - 03/19/21 [facility] [address] [place], [place] [address] Attending Physician: Gaston Gomez MD Allergies, Adverse [...] Given 1Result Comment: [11/10/2018] given w/out incident [facility]:[id number] History: per pt. received @ exzuswqd6Zhdwve Comment: [08/01/2014] given w/out vvipwctu5Xwlqm Note: 2ND HEP B BNOZKKSIY1Cqumn Note: mass bio Medications loratadine 10 mg oral tablet 10 mg, 1, tablet, By Mouth, Daily, # 14 tablet, Refills 0, Tot. Refills 0, Maintenance, 12/09/19 11:00:00 EST, Route to Pharmacy Electronically, [facility] #[id number], 154, cm, 12/09/19 10:31:00 EST, Height, 92.6, kg, 12/09/19 10:31:00 EST, Dry... Start Date: 12/09/19 Stop Date: 12/23/19 Status: OrderedZithromax Z-Nj 250 mg oral tablet See Instructions, as directed on package labeling, # 1 pack/packet, 0 Refills, Maintenance, 12/01/2109:45:00 EST, [facility] #[id number], Partial fill upon patient request if the [...] [Reference Range]: 1 2 Height 154 cm (03/12/21 8:15 AM) Weight 92.6 kg (03/12/21 8:15 AM) Oxygen Saturation [94-100 %] 99 % (03/12/21 8:15 AM) Pulse Rate [55-90 bpm] 63 bpm (03/12/21 8:15 AM) Body Mass Index [18.5-24.99] 39.05 *>HHI* (03/12/21 8:15 AM) Blood Pressure [90-138/55-84 mm Hg] 124/82 mm Hg 138/ 82 mm Hg (03/12/21 8:18 AM) (03/12/21 8:15 AM) Temperature [96.8-100.4 DegF] 97.9 DegF (03/12/21 8:15 AM) Mode of Delivery (Oxygen) Room air (03/12/21 8:15 AM) Blood pressure sites Arm, left (03/12/21 8:15 AM) Temperature Route Temporal (03/12/21 8:15 AM) Social History Social History Type Response Smoking Status Never (less than 100 in life time) entered on: 12/07/19 Sex
--- OUTSIDE RECORDS SUMMARY | 2022-12-14 14:51 | XMS_ITS | Continuity of Care Document ---
:1980 Author Organization [facility] Address [address] [place] [address]- Care Team Providers Name Role Phone Gaston Gomez MD Primary Care Physician En[facility] Date(s): 12/07/19 - 12/17/19 [facility] [address] [place] [address]- [facility] Attending Physician: Admtr, Mariel Allergies, Adverse Reactions, Alerts Substance Reaction Severity [...] Given 1Result Comment: [11/10/2018] given w/out incident nd:[id number] History: per pt. received @ ipadjhta3Evxjfk Comment: [08/01/2014] given w/out vxnzhkju5Urmsd Note: 2ND HEP B OACCYIECF0Zintw Note: mass bio Medications loratadine 10 mg oral tablet 10 mg, 1, tablet, By Mouth, Daily, # 14 tablet, Refills 0, Tot. Refills 0, Maintenance, 12/09/19 11:00:00 EST, Route to Pharmacy Electronically, [facility] #[id number], 154, cm, 12/09/19 10:31:00 EST, Height, 92.6, [...] by endovascular surgeon Dr. Belem Blount IV Procedures Procedure Date Related Diagnosis Body Site Status Colonoscopy 01/29/10 Completed Social History Social History Type Response Smoking Status Never (less than 100 in life time) entered on: 12/07/19 Sex
--- OUTSIDE RECORDS SUMMARY | 2022-12-14 14:51 | XMS_ITS | Continuity of Care Document ---
:1980 Author Organization [facility] Address [address] [place] [address]- Care Team Providers Name Role Phone Gaston Gomez MD Primary Care Physician Encounter [facility] Date(s): 10/24/19 - 10/31/19 [facility] [address] [place] [address]- [facility] Encounter Diagnosis Contusion of right forearm (Discharge Diagnosis) - 10/24/19 Attending Physician: Haile Ramirez MD Referring Physician: Gaston Gomez MD Allergies, [...] Given 1Result Comment: [11/10/2018] given w/out incident [facility]:[id number] History: per pt. received @ exbujqvb5Hudscp Comment: [08/01/2014] given w/out ognirvlk3Rjuhn Note: 2ND HEP B BTHDZMYKL5Uwzrb Note: mass bio Problem List Condition Effective Dates Status Health [...] Dates Health Status Clinical In formant Service Contusion of Discharge 10/24/19 right forearm Diagnosis Vital Signs Most recent to oldest [Reference Range]: 1 Height 154 cm (10/24/19 5:58 PM) Weight 91.5 kg (10/24/19 5:58 PM) Oxygen Saturation [94-100 %] 97 % (10/24/19 5:58 PM) Pulse Rate [55-90 bpm] 82 bpm (10/24/19 5:58 PM) Body Mass Index [18.5-24.99] 38.58 *>HHI* (10/24/19 5:58 PM) Blood Pressure [90-138/55-84 mm Hg] 147/105 mm Hg *H* (10/24/19 5:58 PM) Respiratory Rate [16-30 br/min] 17 br/min (10/24/19 5:58 PM) Temperature [96.8-100.4 DegF] 98.3 DegF (10/24/19 5:58 PM) Mode of Delivery (Oxygen) Room air (10/24/19 5:58 PM) Blood pressure sites Arm, right (10/24/19 5:58 PM) Temperature Route Oral (10/24/19 5:58 PM) Dry Weight 91.5 kg (10/24/19 5:58 PM) Dry Weight Obtained Via Standing scale (10/24/19 5:58 PM) Social History Social History Type Response Smoking Status Former smoker entered on: 06/21/14 Sex
--- OUTSIDE RECORDS SUMMARY | 2022-12-14 14:51 | XMS_ITS | Continuity of Care Document ---
:1980 Author Organization [facility] Address [address] [place] [address]- Care Team Providers Name Role Phone Gaston Gomez MD Primary Care Physician [facility] Date(s): 07/12/22 - 08/11/22 [facility] [address] [place], [place] [address] Attending Physician: Mariel Louis Admitting Physician: AdmtrMariel Referring Physician: Admtr, Ar8 Allergies, Adverse Reactions, Alerts Substance Reaction Severity [...] Given 1Result Comment: [11/10/2018] given w/out incident ndc:[id number] History: per pt. received @ qykcenbi4Ohnesg Comment: [08/01/2014] given w/out xmnfdlow1Icaak Note: 2ND HEP B FPOJBUEIF8Dfgcc Note: mass bio Medications loratadine 10 mg oral tablet 10 mg, 1, tablet, By Mouth, Daily, # 14 tablet, Refills 0, Tot. Refills 0, Maintenance, 12/09/19 11:00:00 EST, Route to Pharmacy Electronically, [facility] #[id number], 154, cm, 12/09/19 10:31:00 EST, Height, 92.6, kg, 12/09/19 10:31:00 EST, Dry... 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 Belem Blount IV Social History Social History Type Response Smoking Status Never (less than 100 in life time) entered on: 12/07/19 Sex Patient Care team information PersonnelName: Gaston Gomez MD Address: Address: [address] [place] [address] [facility] [place], [place] [address]
--- OUTSIDE RECORDS SUMMARY | 2022-12-14 14:51 | XMS_ITS | Continuity of Care Document ---
:1980 Author Organization [facility] Address [address] [place] [address]- Care Team Providers Name Role Phone Jason ALEXANDER, Gaston Primary Care Physician [facility] Date(s): 03/12/21 - 04/11/21 [facility] [address] [place] [address]- Allergies, Adverse Reactions, Alerts Substance Reaction Severity [...] Given 1Result Comment: [11/10/2018] given w/out incident [facility]:[id number] History: per pt. received @ ijwgqrju1Vawfli Comment: [08/01/2014] given w/out hqtqyirx5Gplsz Note: 2ND HEP B HCYILMEHR2Ffjhj Note: mass bio Medications loratadine 10 mg oral tablet 10 mg, 1, tablet, By Mouth, Daily, # 14 tablet, Refills 0, Tot. Refills 0, Maintenance, 12/09/19 11:00:00 EST, Route to Pharmacy Electronically, [facility] #[id number], 154, cm, 12/09/19 10:31:00 EST, Height, 92.6, [...]
--- OUTSIDE RECORDS SUMMARY | 2022-12-14 14:51 | XMS_ITS | Continuity of Care Document ---
:1980 Author Organization [facility] Address [address] [place] [address]- Care Team Providers Name Role Phone Jason ALEXANDER, Gaston Primary Care Physician [facility]counter [facility] Date(s): 03/13/21 - 04/12/21 [facility] [address] [place] [address]- Allergies, Adverse Reactions, Alerts Substance Reaction Severity [...] Given 1Result Comment: [11/10/2018] given w/out incident [facility]:[id number] History: per pt. received @ gqaeapap1Zsefmd Comment: [08/01/2014] given w/out wnyhrwja3Xgxmm Note: 2ND HEP B GTVUZGPFE4Dbrzw Note: mass bio Medications loratadine 10 mg oral tablet 10 mg, 1, tablet, By Mouth, Daily, # 14 tablet, Refills 0, Tot. Refills 0, Maintenance, 12/09/19 11:00:00 EST, Route to Pharmacy Electronically, [facility] #[id number], 154, cm, 12/09/19 10:31:00 EST, Height, 92.6, [...]
--- OUTSIDE RECORDS SUMMARY | 2022-12-14 14:51 | XMS_ITS | Continuity of Care Document ---
:1980 Author Organization [facility] Address [address] [place] [address]- Care Team Providers Name Role Phone Gaston Gomez MD Primary Care Physician Encounter [facility] Date(s): 12/06/22 - 12/13/22 [facility] [address] [place] [address]- Encounter Diagnosis Severe obesity (Discharge Diagnosis) - 12/06/22 Attending Physician: Gaston Gomez MD Allergies, Adverse [...] Given 1Result Comment: [11/10/2018] given w/out incident ndc:[id number] History: per pt. received @ [id number] Comment: [08/01/2014] given w/out [id number] Note: 2ND HEP B [id number] Note: mass bio Medications loratadine 10 mg oral tablet 10 mg, 1, tablet, By Mouth, Daily, # 14 tablet, Refills 0, Tot. Refills 0, Maintenance, 12/09/19 11:00:00 EST, Route to Pharmacy Electronically, [facility][id number], 154, cm, 12/09/19 10:31:00 EST, Height, 92.6, kg, 12/09/19 10:31:00 EST, Dry... Start Date: 12/09/19 Stop Date: 12/23/19 Status: Orderedmetoprolol 50 mg oral tablet, extended release 50 mg, 1, tablet, By Mouth, Daily, # 30 tablet, Refills 5, Tot. Refills 5, Maintenance, 12/06/22 19:31:00 EST, Route to Pharmacy Electronically, [facility] #[id number], increase in dose, 154, cm, 12/06/22 19:15:00 EST, Height Start Date: 12/06/22 Stop Date: 06/04/23 Status: OrderedtiZANidine 2 mg oral tablet 2 mg, 1, tablet, By Mouth, Every 8 hours, PRN, # 42 tablet, Refills 0, Tot. Refills 0, Maintenance, as needed for muscle spasm, 11/18/22 14:31:00 EST, Route to Pharmacy Electronically, [email or web address] #[id number], Partial fill upon patient request if... 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 Belem Blount IV Diagnosis Diagnosis Type Effective Dates Health Status Clinical In formant Service Severe obesity Discharge 12/06/22 Diagnosis Vital Signs Most recent to oldest [Reference Range]: 1 Height 154 cm (12/06/22 7:15 PM) Weight 97.2 kg (12/06/22 7:15 PM) Oxygen Saturation [94-100 %] 95 % (12/06/22 7:15 PM) Pulse Rate [55-90 bpm] 104 bpm *H* (12/06/22 7:15 PM) Body Mass Index [18.5-24.99 kg/m2] 40.98 kg/m2 *>HHI* (12/06/22 7:15 PM) Blood Pressure [90-138/55-84 mm Hg] 144/86 mm Hg *H* (12/06/22 7:15 PM) Mode of Delivery (Oxygen) Room air (12/06/22 7:15 PM) Blood pressure sites Arm, right (12/06/22 7:15 PM) Social History Social History Type Response Smoking Status Never (less than 100 in life time) entered on: 12/07/19 Sex Note Diane Padron: PERFORM, SIGN, VERIFY Event Display: Patient Education/Instruction Authored Date: [id number] [facility] *[facility] Adult [facility] Clinical Summary Name MATTHEW BHAT Age 42 Years 1980 PCP Jason ALEXANDER, Gaston PCP Visit Date 12/06/2022 19:07:00 Additional Instructions: Scheduled Appointments?? Future Appointments ?No Future Appointments Scheduled Follow-Up Instructions ?? Diagnosis Medications: Please continue your medications until treatment is completed or stopped by your provider. Discuss any questions related to medications with your provider. Medications to Continue Taking That Have Changed [facility] #[id number], [address], [place] [id number], [phone] - Metoprolol (metoprolol 50 mg oral tablet, extended release) 1 tab(s) Oral Daily for 30 Days. Refills: 5. Next Dose: Medications to Continue with No Changes These medications were not printed or sent to your pharmacy Loratadine (loratadine 10 mg oral tablet) 1 tab(s) Oral Daily for 14 Days. Refills: 0. Next Dose: Tizanidine (tiZANidine 2 mg oral tablet) 1 tab(s) Oral every 8 hours as needed as needed for muscle spasm for 14 Days. Refills: 0. Next Dose: Allergy Info:?? cranberry; shellfish; morphine Medications Given This Visit Future Orders ?Basic Metabolic Panel? Order Date:12/06/22?- Complete on or after?12/06/22 ?Lipid Panel? Order Date:12/06/22?- Complete on or after?12/06/22 ?ALT? Order Date:12/06/22?- Complete on or after?12/06/22 ?AST? Order Date:12/06/22?- Complete on or after?12/06/22 ?Thyroid Panel? Order Date:12/06/22?- Complete on or after?12/06/22 ?CBC? Order Date:12/06/22?- Complete on or after?12/06/22 Vital Signs Height 154 cm Weight 97.2 kg BMI 40.98 kg/m2 Blood Pressure 144 mm Hg/86 mm Hg Temperature Pulse Rate 104 bpm Respiratory Rate 02 Sat Mode of Delivery 95 %/Room air You can now view a summary of your hospital visit from the comfort of your home through a free online portal called [employer]. [employer] is a website that allows you to securely view yourmedical information including discharge summary, medications and follow-up visits. ??You can also send a secure electronic message to your doctor???s office to request appointments, renew medications or just ask a question. You can enroll at [email or web address] or register during your next office visit. Disclaimer:?? The information provided is of a general nature and is intended to be used in conjunction with the recommendations and advice of your health care practitioner. ??Every effort has been made to ensure that the information provided is accurate and complete at the time it is provided to you however, as your needs change, or, as new ??information becomes available, different or additional instructions may be required. If you have questions, please consult with your primary care provider or pharmacist, as appropriate.??This information is not intended to serve as substitution for assessment and evaluation by a qualified health care provider. If you do not have a primary care provider, you may find a [facility] provider by calling [facility] '[employer] [facility] at [phone]. For information about the plan of care including goals and instructions for your diagnosis, please see the patient education orders section of this document. Patient Education Materials?? The content of this educational material or handout may have been modified, supplemented, or adaptedfrom its original content and format to support your individualized medical care. Patient Care team information Care Team PersonnelName: Gaston Gomez MD Position: [facility] Primary Care Physician Member Role: PCP Address: Address: [address] [place] [address] Adult [place] [address]- Care Team Related PersonsName: JESSICA PERSON Address: home [address], [place] Name: ULYSSES BHAT Address: home [address] [place] [address] Name: CONCHA BHAT Address: [address] [place] [address]
--- OUTSIDE RECORDS SUMMARY | 2022-12-14 14:51 | XMS_ITS | Continuity of Care Document ---
:[address] [facility] Address [address] [place] [address]- Care Team Providers Name Role Phone Gaston Gomez MD Primary Care Physician Encounter [facility] Date(s): 11/28/20 - 12/28/20 [facility] [address] [place], [place] [address] Allergies, Adverse Reactions, Alerts Substance Reaction Severity [...] Given 1Result Comment: [11/10/2018] given w/out incident ndc:[id number] History: per pt. received @ [id number] Comment: [08/01/2014] given w/out [id number] Note: 2ND HEP B [id number] Note: mass bio Medications loratadine 10 mg oral tablet 10 mg, 1, tablet, By Mouth, Daily, # 14 tablet, Refills 0, Tot. Refills 0, Maintenance, 12/09/19 11:00:00 EST, Route to Pharmacy Electronically, [facility] #[id number], 154, cm, 12/09/19 10:31:00 EST, Height, 92.6, kg, 12/09/19 10:31:00 EST, Dry... Start Date: 12/09/19 Stop Date: 12/23/19 Status: OrderedZithromax Z-Nj 250 mg oral tablet See Instructions, as directed on package labeling, # 1 pack/packet, 0 Refills, Maintenance, 12/01/2109:45:00 EST, [facility] #[id number], Partial fill upon patient request if the [...]
--- OUTSIDE RECORDS SUMMARY | 2022-12-14 14:52 | XMS_ITS | Continuity of Care Document ---
:[address] [facility] [place] [facility] Address [address] [place] [address]- Care Team Providers Name Role Phone Gaston Gomez MD Primary Care Physician Encounter [facility] Date(s): 03/15/22 - 04/14/[address] [facility] [place] [place] [facility] [address] [place], [place] [address] Allergies, Adverse Reactions, Alerts [...] Given 1Result Comment: [11/10/2018] given w/out incident [facility]:[id number] History: per pt. received @ [id number] Comment: [08/01/2014] given w/out [id number] Note: 2ND HEP B [id number] Note: mass bio Medications loratadine 10 mg oral tablet 10 mg, 1, tablet, By Mouth, Daily, # 14 tablet, Refills 0, Tot. Refills 0, Maintenance, 12/09/19 11:00:00 EST, Route to Pharmacy Electronically, [facility] #[id number], 154, cm, 12/09/19 10:31:00 EST, Height, 92.6, [...]
--- OUTSIDE RECORDS SUMMARY | 2022-12-14 14:52 | XMS_ITS | Continuity of Care Document ---
:1980 Author Organization [facility] Address [address] [place] [address]- Care Team Providers Name Role Phone Gaston Gomez MD Primary Care Physician Encounter [facility] Date(s): 12/01/20 - 12/08/20 [facility] [address] [place], [place] [address] Encounter Diagnosis Fatigue (Discharge Diagnosis) - 12/01/20 Attending Physician: Gaston Gomez MD Allergies, Adverse [...] Given 1Result Comment: [11/10/2018] given w/out incident [facility]:[id number] History: per pt. received @ [id number] Comment: [08/01/2014] given w/out [id number] Note: 2ND HEP B [id number] Note: mass bio Medications loratadine 10 mg oral tablet 10 mg, 1, tablet, By Mouth, Daily, # 14 tablet, Refills 0, Tot. Refills 0, Maintenance, 02/02/20 11:00:00 EST, Route to Pharmacy Electronically, [email or web address] #[id number], 154, cm, 12/09/19 10:31:00 EST, Height, 92.6, kg, 12/09/19 10:31:00 EST, Dry... Start Date: 12/09/19 Stop Date: 12/23/19 Status: OrderedZithromax Z-Nj 250 mg oral tablet See Instructions, as directed on package labeling, # 1 pack/packet, 0 Refills, Maintenance, 12/01/2109:45:00 EST, [facility] #[id number], Partial fill upon patient request if the [...] Diagnosis Type Effective Dates Health Status Clinical Serv ice Informant Fatigue Discharge 12/01/20 Diagnosis Social History Social History Type Response Smoking Status Never (less than 100 in life time) entered on: 12/07/19 Sex
[2022-12-14 15:02] LABS: Alanine Aminotransferase 16 U/L (0-31); Albumin Level 4.3 g/dL (3.5-5.0); Alkaline Phosphatase 98 U/L (39-117); Anion Gap 14 (12-20); Aspartate Amino Transferase 12 U/L (5-31); Bilirubin Total 0.4 mg/dL (0.0-1.0); Blood Urea Nitrogen 9 mg/dL (9-16); Calcium 9.3 mg/dL (8.4-10.2); Carbon Dioxide 26 mmol/L (22-29); Chloride 107 mmol/L (96-108); Creatinine Clr Calc Pharmacy 107.8; Estimated Glomerular Filt Rate > 60; Glucose Random 111 mg/dL (60-115); Sodium 143 mmol/L (135-145); Total Protein 7.1 g/dL (6.5-8.0)
[2022-12-14 15:06] LABS: Bacteria Urine None Seen (None Seen); Hyaline Casts Urine 0-2 /LPF (0-2); RBC Urine 0-2 /HPF (0-2); WBC Urine 0-5 /HPF (0-5)
[2022-12-14 15:10] LABS: Troponin-I High Sensitivity < 3.5 ng/L (<3.5-17.0)
[2022-12-14 16:11] VITALS: BP 146/84; PULSE 74
[2022-12-14] MEDS: 0.9 % Sodium Chloride 1,000 ML 999 ML IV (16:36)
[2022-12-14] MEDS: Acetaminophen 325 MG TABLET 650 MG PO (16:36)
[2022-12-14] MEDS: Ketorolac Tromethamine 15 MG/ML VIAL IVPUSH (16:37)
[2022-12-14] MEDS: diphenhydrAMINE HCL 50 MG/ML VIAL 25 MG IVPUSH (16:37)
[2022-12-14] MEDS: Metoclopramide HCl 10 MG/2 ML VIAL IVPUSH (16:37)
[2022-12-14 17:56] LABS: Influenza A PCR NEGATIVE (Negative); Influenza B PCR NEGATIVE (Negative); Resp Syncy Virus RNA Qual PCR NEGATIVE (Negative); SARS COV2 PCR INHOUSE NEGATIVE (Negative)
== END 2022-12-14 18:23 | disposition home or self-care (01) ==
PROVIDERS: Nurse Practitioner Family; Emergency Provider Student in an Organized Health Care Education/Training Program; PCP Internal Medicine
DX: R51.9 Headache, unspecified (principal); R11.2 Nausea with vomiting, unspecified; I10 Essential (primary) hypertension; Z20.822 Contact with and (suspected) exposure to COVID-19; Z20.828 Contact with and (suspected) exposure to other viral communicable diseases; Z79.899 Other long term (current) drug therapy
CPT/HCPCS: 0241U; 36415; 80053; 81001; 84484; 85025; 93005; 96361; 96374; 96375; 99284; J1200; J1885; J2765

== ENCOUNTER 2024-09-17 18:11 | Emergency (ER) | payer MEDICAID, SELFPAY ==
--- NOTE | ~2024-09-17 | US_ITS ---
EXAMINATION: US TRIPLEX LOWER EXTREMITY, LEFT CLINICAL INFORMATION: Left lower extremity pain and swelling; question deep venous thrombosis. COMPARISON: Venous duplex dated 03/18/2018. TECHNIQUE: Color-flow triplex imaging with spectral analysis and compression Doppler were performed on the left lower extremity. FINDINGS: Respiratory variation, normal compression and augmented flow are noted throughout the left lower extremity. The visualized common femoral vein, superficial femoral vein, profunda femoral vein, popliteal vein and midcalf peroneal and posterior tibial venous segments show no evidence of deep venous thrombosis. There is a 1.6 x 0.8 x 1.1 cm left popliteal fossa Henderson's cyst. Within the left popliteal fossa, an ill-defined echogenic focus is seen, without associated color Doppler flow. The possibility of a soft tissue hematoma is raised. US/US venous duplex [facility] IMPRESSION: 1. No evidence of deep venous thrombosis involving the left lower extremity. 2. A small left popliteal fossa Henderson's cyst is seen. 3. An ill-defined echogenic soft tissue focus is seen in the vicinity of the left popliteal fossa, possibly an intramuscular hematoma. This shows no associated color Doppler flow. If clinically indicated, this could be further evaluated with MRI. Electronically signed by: Higinio Bond MD 09/17/2024 09:30 PM EST
[2024-09-17 18:48] VITALS: BP 168/103; PULSE 85; RESP 20; TEMP 37; O2SAT 99; BMI 37.9
--- NOTE | 2024-09-17 18:50 | ED.GENADULT ---
HPI - General Adult General Chief complaint: Extremity Injury, Lower Stated complaint: LT leg pain Time Seen by Provider: 09/17/24 23:57 Source: patient, family and old records reviewed Mode of arrival: ambulatory Limitations: no limitations History of Present Illness ED Provider: JOSE VENCES narrative: 44 yo female with PMH of march mik s/p LLE stent by Dr. Moody. Not on thinners, HTN here with c/o 9 days of L posterior knee pain but no trauma reported. Hurts to move and touch. No rash, fevers. She denies no known injury. complaint: L posterior knee pain Onset (ago): day(s) (9) Location: left and lower extremity Radiation: non-radiation Severity: moderate Quality: aching Pain Consistency: constant Relieving factors: immobilization Exacerbating factors: movement Associated symptoms: denies other symptoms Treatments prior to arrival: none Related Data Previous Rx's ?Medication ?Instructions ?Recorded ondansetron 4 mg disintegrating 4 mg PO Q6-8H PRN nausea and 03/25/21 tablet vomiting #14 tabs Allergies Allergy/AdvReac Type Severity Reaction Status Date / Time morphine [MORPHINE] Allergy Mild HIVES Unverified 09/17/24 18:51 meperidine [Demerol] Allergy Unknown Hives Verified 09/17/24 18:51 SHELLFISH Allergy Severe THROAT Uncoded 09/17/24 18:51 CLOSED From DEMEROL Allergy Mild HIVES Uncoded 09/17/24 18:51 shellfish Allergy Unknown Anaphylaxis Uncoded 09/17/24 18:51 Review of Systems Review of Systems: Constitutional : No Fever, No Chills ENT/Mouth : No Ear Pain, No Hoarseness, No sore throat Eyes: No Eye Pain, No Swelling, No Redness, No Foreign Body Cardiovascular : No Chest Pain, No SOB Respiratory : No Cough, No Dyspnea Gastrointestinal : No Nausea, No Vomiting, No Diarrhea, No abdominal Pain Genitourinary : No Dysuria, No Hematuria Musculoskeletal : positive joint pain, No Myalgias, pos Joint Swelling Skin : No Skin lacerations, No rash Neuro : No Weakness, No Numbness, No Loss of Consciousness, No Dizziness, No Headache Psych : No Anxiety/Panic, No Depression All other systems reviewed and are negative PMFSH Past Medical History Attestation statement: The following information was validated with the patient. Source: old records reviewed Medical History May-Thurner syndrome HTN (hypertension) Social History Social History (Updated 09/18/24 @ 00:04 by Kay Leon DO) Patient Tobacco Use Status: Never used Tobacco Physical Exam ED Vital Signs: Vital Signs - 24 hr 09/17/24 18:48 Temperature 98.6 F Pulse Rate 85 Respiratory Rate 20 Blood Pressure 168/103 H Pulse Oximetry 99 Oxygen Delivery Method Room Air BMI result Body Mass Index 37.9 Appearance: Alert. Oriented X3. No acute distress. Eyes: Pupils equal, round and reactive to light. ENT: Pharynx normal. Neck: Normal inspection. Neck supple. CVS: Normal heart rate and rhythm. Pulses normal. Respiratory: No respiratory distress. Breath sounds normal. Abdomen: Soft and non-tender. Skin: Skin warm and dry. Normal skin color. Extremities: No lower extremity edema. L knee posterior fullness - has pain but no redness, warmth, distal pulses intact Neuro: Oriented X 3. No motor deficit. No sensory deficit. Course Course Course Narrative: RME performed by Sylwia Trent PA-C. Patient is a 44 year old assigned female at presenting to the emergency department with left lower leg pain and swelling. Detailed physical exam and review of systems are deferred to the painter aircraft. Imaging ordered. Patient placed back in the waiting room pending room availability and results. Medical Decision Making Medical Decision Making MDM Narrative: 44 yo female with PMH of may thurner s/p LLE stent, HTN here with c/o posterior knee pain - no signs of infection, NV intact, denies trauma will obtain DVT study possible clot vs cyst. Differential Diagnosis Differential Diagnoses: The differential diagnosis associated with the presentation includes DVT, henderson's cyst Independent Interpretation I performed an independent interpretation of an: Ultrasound (on DVT) Radiology Impression Discussion of test interpretation with radiology: I have reviewed the radiologist's reading. Independent Historian Clinical information obtained from an independent historian. History obtained from or confirmed by: Other (daughter) External Record Review External record reviewed: Outpatient record Prescription Management I considered prescription management with: Pain Medication Discharge Plan Discharge Clinical Impression: Henderson's cyst of knee Qualifiers: Laterality: left Qualified Code(s): M71.22 - Synovial cyst of popliteal space [Henderson], left knee Instructions: Bakers Cyst (ED) Additional Instructions: return for fevers, red swollen joint, worsening swelling over next 5 days you need to see your doctor and possibly orthopedics limited strenuous activity for 4 weeks juan wrap for 5 days crutches as needed US/US venous duplex LE LT IMPRESSION: 1. No evidence of deep venous thrombosis involving the left lower extremity. 2. A small left popliteal fossa Henderson's cyst is seen. 3. An ill-defined echogenic soft tissue focus is seen in the vicinity of the left popliteal fossa, possibly an intramuscular hematoma. This shows no associated color Doppler flow. Prescriptions: No Action ondansetron 4 mg tablet,disintegrating 4 mg PO Q6-8H PRN (Reason: nausea and vomiting) Qty: 14 0RF Referrals: [facility] Orthopedic Surgeons [Provider Group] Stand Alone Forms: Work/School Release Print Language: Cook Islander
[2024-09-18 00:13] VITALS: BP 157/77; PULSE 66; RESP 16; TEMP 36.2; O2SAT 97
[2024-09-18 00:24] VITALS: BP 157/77; PULSE 66; RESP 16; TEMP 36.2; O2SAT 97
== END 2024-09-18 00:24 | disposition home or self-care (01) ==
PROVIDERS: Emergency Provider Emergency Medicine; PCP Internal Medicine
DX: M71.22 Synovial cyst of popliteal space [Baker], left knee (principal); M25.562 Pain in left knee; I10 Essential (primary) hypertension; I87.1 Compression of vein
CPT/HCPCS: 93971; 99283; 99284

== ENCOUNTER 2024-10-05 07:00 | Emergency (ER) | payer MEDICAID, SELFPAY ==
--- NOTE | ~2024-10-05 | US_ITS ---
EXAMINATION: US SUPERFICIAL SOFT TISSUES, LEFT KNEE CLINICAL INDICATION: Worsening posterior left leg pain. Known cyst. TECHNIQUE: Limited, directed ultrasound examination of the superficial soft tissues of the left knee was performed in the region of pain as indicated by the patient. Images were supplemented by color Doppler. COMPARISON: Left lower extremity deep venous ultrasound dated September 17, 2024. FINDINGS: Examination of the left posterior knee in the region of pain as indicated by the patient demonstrates a completely nonspecific, 4.1 x 2.2 x 3.3 cm, smooth, wider than tall, ovoid structure which is isoechoic to surrounding subcutaneous fat. Mild internal flow is seen, without obvious hypervascularity. This appears unchanged compared with ultrasound examination from 18 days prior. No contralateral views are submitted for comparison. Differential diagnosis includes, but is not limited to, normal subcutaneous fat, lipoma and, less likely, fatty neoplasm, etc. Compressible, superficial varicose veins are also demonstrated in the region of pain as indicated by the patient. US/US extremity nonvascular anders IMPRESSION: Findings as above. Electronically signed by: Azam Blum MD 10/05/2024 09:43 AM [facility]
[2024-10-05 07:08] VITALS: BP 141/99; PULSE 90; RESP 16; TEMP 36.2; O2SAT 99; BMI 44.4
--- NOTE | 2024-10-05 07:42 | ED.GENADULT ---
HPI - General Adult General Chief complaint: General Medical Stated complaint: Bakers Cyst L Knee ?Vag Bleed Time Seen by Provider: 10/05/24 07:36 History of Present Illness HPI narrative: Patient is a 44-year-old female who presents emergency department for evaluation. She reports increased pain and swelling to her left calf. She was seen in the emergency department 09/17/2024 and was advised that she had a Henderson cyst, she has an appointment with Orthopedics October 18. She states about 4 days after her visit here the pain increased, she has been putting it off but ultimately today her family convinced her to come for re-evaluation. She has not taken acetaminophen or ibuprofen since last night. Additionally, She reports that after urinating and having a bowel movement this morning that she states she was not particularly straining for, when she wiped there was a single spot of blood on the toilet tissue. She denies any pelvic pain, persistent bleeding. Denies any hematuria, states her urine has appeared slightly darker but denies dysuria urinary frequency/urgency/hesitancy. She denies any constipation or diarrhea. No recent hematochezia or melena. No associated nausea vomiting abdominal or back pain. Admits to a history of a hysterectomy 10 years ago, therefore does not have her menses Related Data Previous Rx's ?Medication ?Instructions ?Recorded ondansetron 4 mg disintegrating 4 mg PO Q6-8H PRN nausea and 03/25/21 tablet vomiting #14 tabs naproxen 500 mg tablet 500 mg PO BID PRN pain #14 tabs 10/05/24 Allergies Allergy/AdvReac Type Severity Reaction Status Date / Time morphine [MORPHINE] Allergy Mild HIVES Verified 10/05/24 07:09 meperidine [Demerol] Allergy Unknown Hives Verified 10/05/24 07:09 SHELLFISH Allergy Severe THROAT Uncoded 09/17/24 18:51 CLOSED From DEMEROL Allergy Mild HIVES Uncoded 09/17/24 18:51 shellfish Allergy Unknown Anaphylaxis Uncoded 09/17/24 18:51 [facility] Past Medical History Medical History May-Thurner syndrome HTN (hypertension) Social History Social History (Updated 09/18/24 @ 00:04 by Kay Leon DO) Patient Tobacco Use Status: Never used Tobacco Use of substances other than those prescribed or required for medical reasons: No Advance Directives: No Advance Directives Information Provided: No Do you have a plan to hurt others: No Plan Physical Exam ED Vital Signs: Vital Signs - 24 hr 10/05/24 07:08 Temperature 97.1 F Pulse Rate 90 Respiratory Rate 16 Blood Pressure 141/99 H Pulse Oximetry 99 Oxygen Delivery Method Room Air BMI result Body Mass Index 44.4 Course Reevaluation(s) Reevaluation #1: Lower extremity ultrasound revealing structure to the left anterior knee appearing unchanged when compared she prior ultrasound from 09/17, compressible superficial varicose veins are noted as per PE portion of this note. Conservative treatment some prescription for naproxen, advised outpatient follow-up with orthopedics. Time: 09:53 Medical Decision Making Medical Decision Making MDM Narrative: Patient is a 44-year-old female with past medical history of May-Thurner syndrome status post left lower extremity stent, hypertension, known left popliteal Henderson cyst presenting for evaluation of increasing pain to the left posterior knee. Venous duplex ultrasound from 09/17/2024 reveals no evidence of DVT, small left popliteal fossa Henderson cyst was present as well as an ill-defined echogenic soft tissue focus in the left popliteal fossa possibly an intramuscular hematoma. On evaluation her compartments are soft, she does have fullness to the left popliteal fossa, tenderness upon palpation, as well as a prominent varicose vein but no erythema or warmth. Lower suspicion at this time for compartment syndrome. However, given the progression of her pain, will repeat venous duplex ultrasound. Regarding the blood noted on the toilet tissue she has had no further episodes of bleeding, plan to obtain urinalysis to exclude infection/microscopic hematuria, discussed pelvis/rectal examination at this time she declines. She has had no further episodes of any when using discussed the possibility for she was having. I did discuss with evaluation presents vaginal bleeding this is atypical after a hysterectomy warrant further evaluation with an OBGYN. Differential Diagnosis Differential Diagnoses: The differential diagnosis associated with the presentation includes (See narrative above) Admission/Observation Consideration of admission/observation: Escalation of care including admission/observation considered (See narrative above) Lab Data [facility] Lab Attestation statement: I reviewed the patient's lab results. 10/05/24 08:06 10/05/24 08:06 Labs: Lab Results 10/05/24 Range/Units 08:06 WBC 11.5 H (4.8-10.8) X10*3/uL RBC 4.60 (4.20-5.50) X10*6/uL Hgb 13.4 (12.0-16.0) g/dl Hct 40.7 (37.0-47.0) % MCV 88.5 (80.0-98.0) fL MCH 29.1 (27.0-33.0) pg MCHC 32.9 (31.0-35.0) g/dl RDW 12.5 (11.0-16.0) % Plt Count 307 (160-400) X10*3/uL MPV 10.4 (9.4-12.3) fL Immature Gran % (Auto) 0.8 H (0.0-0.4) % Neut % (Auto) 72.5 (45-73) % Lymph % (Auto) 18.7 L (20-40) % [place] % (Auto) 6.8 (2-11) % Eos % (Auto) 0.5 (0-4) % Baso % (Auto) 0.7 (0-2) % Lymph # (Auto) 2.2 (1.2-4.9) X10*3/uL [place] # (Auto) 0.8 (0.1-1.2) X10*3/uL Eos # (Auto) 0.1 (0.0-0.4) X10*3/uL Baso # (Auto) 0.1 (0.0-0.2) X10*3/uL Abs Immat Gran (auto) 0.09 H (0.00-0.03) X10*3/uL Absolute Neuts (auto) 8.4 H (2.0-8.3) x10*3/uL Absolute Nucleated RBC 0.000 (0.0-0.012) X10*3/uL Nucleated RBC % (auto) 0.0 (0.0-0.2) /100WBC Sodium 141 (135-145) mmol/L Potassium 3.8 (3.3-5.1) mmol/L Chloride 107 (96-108) mmol/L Carbon Dioxide 24 (22-29) mmol/L Anion Gap 14 (12-20) BUN 13 (9-16) mg/dL Creatinine 0.81 (0.5-1.4) mg/dL Estim Creat Clear Calc 93.1 Estimated GFR > 60 Random Glucose 115 (60-115) mg/dL Calcium 8.9 (8.4-10.2) mg/dL Total Bilirubin 0.4 (0.0-1.0) mg/dL AST 25 (5-31) U/L ALT 17 (0-31) U/L Alkaline Phosphatase 90 (39-117) U/L Total Protein 7.5 (6.5-8.0) g/dL Albumin 4.1 (3.5-5.0) g/dL Urine Color Yellow Urine Appearance Clear Urine pH 7.5 (5.0-9.0) Ur Specific [place] 1.015 (1.005-1.025) Urine Protein Negative (Neg-Trace) mg/dL Urine Glucose (UA) Negative (Negative) mg/dL Urine Ketones Negative (Negative) mg/dL Urine Blood Negative (Negative) Urine Nitrite Negative (Negative) Ur Leukocyte Esterase Large (3+) H (Negative) Urine RBC 0-2 (0-2) /HPF Urine WBC 6-10 H (0-5) /HPF Ur Squamous Epith Cells 3-5 (0-2) /HPF Urine Bacteria None Seen (None Seen) Hyaline Casts 0-2 (0-2) /LPF Radiology Impression Discussion of test interpretation with radiology: I have reviewed the radiologist's reading. Radiologist Impression: FINDINGS: Examination of the left posterior knee in the region of pain as indicated by the patient demonstrates a completely nonspecific, 4.1 x 2.2 x 3.3 cm, smooth, wider than tall, ovoid structure which is isoechoic to surrounding subcutaneous fat. Mild internal flow is seen, without obvious hypervascularity. This appears unchanged compared with ultrasound examination from 18 days prior. No contralateral views are submitted for comparison. Differential diagnosis includes, but is not limited to, normal subcutaneous fat, lipoma and, less likely, fatty neoplasm, etc. Compressible, superficial varicose veins are also demonstrated in the region of pain as indicated by the patient. Independent Historian Clinical information obtained from an independent historian. History obtained from or confirmed by: Other (Daughter) External Record Review External record reviewed: Outpatient record Discharge Plan Discharge Clinical Impression: Henderson's cyst of knee Qualifiers: Laterality: left Qualified Code(s): M71.22 - Synovial cyst of popliteal space [Henderson], left knee Patient Disposition: Home, Self-Care Instructions: Bakers Cyst (ED) Additional Instructions: Ultrasound appears unchanged when compared to prior. As discussed, the leg is soft when touching it which is reassuring, you do have a varicose vein in the back of the leg as well. Apply Baldomero bandage Yana for compression over the next week. Refrain from excessive physical activity, particularly prolonged standing or excessive flexion of the knee. Prescription for naproxen was sent to your pharmacy, take this twice daily for pain as needed. Do not take additional [id number] NSAIDs including ibuprofen/Motrin/Advil, Aleve, aspirin while taking this medication. Follow-up with the orthopedic doctor as scheduled. If you have any further episodes of bleeding you should seek evaluation with an OBGYN is it is not normal to have vaginal bleeding in the context of you having a hysterectomy 10 years ago. Your blood counts today were normal. Prescriptions: New naproxen 500 mg tablet 500 mg PO BID PRN (Reason: pain) Qty: 14 0RF No Action ondansetron 4 mg tablet,disintegrating 4 mg PO Q6-8H PRN (Reason: nausea and vomiting) Qty: 14 0RF Referrals: Gaston Gomez MD [Primary Care Provider] - Print Language: Croatian
[2024-10-05 08:12] LABS: MANUAL DIFF FLAG NO
[2024-10-05 08:13] LABS: Basophils Absolute Auto 0.1 X10*3/uL (0.0-0.2); Basophils Percent Auto 0.7 % (0-2); Eosinophils Absolute Auto 0.1 X10*3/uL (0.0-0.4); Eosinophils Percent Auto 0.5 % (0-4); Hematocrit 40.7 % (37.0-47.0); Hemoglobin 13.4 g/dl (12.0-16.0); Imm Gran Abs Auto 0.09 X10*3/uL (0.00-0.03); Imm Gran Pct Auto 0.8 % (0.0-0.4); Lymphocytes Absolute Auto 2.2 X10*3/uL (1.2-4.9); Lymphocytes Percent Auto 18.7 % (20-40); Mean Corpuscular HGB Conc 32.9 g/dl (31.0-35.0); Mean Corpuscular Hemoglobin 29.1 pg (27.0-33.0); Mean Corpuscular Volume 88.5 fL (80.0-98.0); Mean Platelet Volume 10.4 fL (9.4-12.3); Monocytes Absolute Auto 0.8 X10*3/uL (0.1-1.2); Monocytes Percent Auto 6.8 % (2-11); Neutrophils Absolute Auto 8.4 x10*3/uL (2.0-8.3); Neutrophils Percent Auto 72.5 % (45-73); Platelet Count 307 X10*3/uL (160-400); Red Cell Distribution Width 12.5 % (11.0-16.0); White Blood Count 11.5 X10*3/uL (4.8-10.8)
[2024-10-05 08:14] LABS: Appearance Urine Clear; Color Urine Yellow; Glucose Urine UA Negative (Negative); Leukocyte Esterase Urine Large (3+) (Negative); Nitrite Urine Negative (Negative); PH 7.5 (5.0-9.0); Specific Gravity - Urine 1.015 (1.005-1.025); UMIC TRIGGER UACC YES; Urine Blood Negative (Negative); Urine Ketones Negative (Negative); Urine Protein Negative (Neg-Trace)
[2024-10-05 08:19] LABS: Bacteria Urine None Seen (None Seen); Hyaline Casts Urine 0-2 /LPF (0-2); RBC Urine 0-2 /HPF (0-2); UACC Culture Trigger YES
[2024-10-05 08:33] LABS: Alanine Aminotransferase 17 U/L (0-31); Albumin Level 4.1 g/dL (3.5-5.0); Alkaline Phosphatase 90 U/L (39-117); Anion Gap 14 (12-20); Aspartate Amino Transferase 25 U/L (5-31); Bilirubin Total 0.4 mg/dL (0.0-1.0); Blood Urea Nitrogen 13 mg/dL (9-16); Calcium 8.9 mg/dL (8.4-10.2); Carbon Dioxide 24 mmol/L (22-29); Chloride 107 mmol/L (96-108); Creatinine Clr Calc Pharmacy 93.1; Estimated Glomerular Filt Rate > 60; Glucose Random 115 mg/dL (60-115); Potassium 3.8 mmol/L (3.3-5.1); Sodium 141 mmol/L (135-145); Total Protein 7.5 g/dL (6.5-8.0)
[2024-10-05 10:17] VITALS: BP 122/75; PULSE 92; RESP 16; TEMP 36.6; O2SAT 98
== END 2024-10-05 10:18 | disposition home or self-care (01) ==
PROVIDERS: Nurse Practitioner Family; Emergency Provider Emergency Medicine; PCP Internal Medicine
DX: M71.22 Synovial cyst of popliteal space [Baker], left knee (principal); R31.9 Hematuria, unspecified; Z79.899 Other long term (current) drug therapy
CPT/HCPCS: 36415; 76882; 80053; 81001; 85025; 87086; 99283; 99284

== ENCOUNTER 2024-10-11 13:25 | Outpatient (REF) | payer MEDICAID, SELFPAY ==
--- NOTE | ~2024-10-11 | XR_ITS ---
EXAMINATION: XR KNEE RIGHT AND LEFT CLINICAL INFORMATION: Pain in unspecified knee M25.569. COMPARISON: None available. TECHNIQUE: AP standing view of bilateral knees. [place] and lateral views of the left knee. FINDINGS: RIGHT KNEE AP STANDING, LATERAL AND SUNRISE VIEWS: Trace joint effusion. Ouyp-gt-rfvxapmg narrowing of the medial compartment. Minimal medial and posterior patellar spurring. AP standing view of the left knee: Mild narrowing of the medial compartment. Minimal medial and lateral marginal spurring. XR/XR knee LT 3V IMPRESSION: 1. Trace right joint effusion. Aeov-zs-zhzmpnhn degenerative changes in the right knee as detailed above. 2. AP standing view of the left knee demonstrates mild degenerative changes. Electronically signed by: Myriam Spence MD 11/21/2024 09:23 AM [facility]
--- NOTE | ~2024-10-11 | XR_ITS ---
EXAMINATION: XR KNEE RIGHT AND LEFT CLINICAL INFORMATION: Pain in unspecified knee M25.569. COMPARISON: None available. TECHNIQUE: AP standing view of bilateral knees. [place] and lateral views of the left knee. FINDINGS: RIGHT KNEE AP STANDING, LATERAL AND SUNRISE VIEWS: Trace joint effusion. Baov-pi-tjnbgram narrowing of the medial compartment. Minimal medial and posterior patellar spurring. AP standing view of the left knee: Mild narrowing of the medial compartment. Minimal medial and lateral marginal spurring. XR/XR knee RT 1V IMPRESSION: 1. Trace right joint effusion. Fujn-zf-fvztwpve degenerative changes in the right knee as detailed above. 2. AP standing view of the left knee demonstrates mild degenerative changes. Electronically signed by: Myriam Spence MD 11/21/2024 09:23 AM [facility]
== END 2024-10-11 13:26 | disposition home or self-care (01) ==
LOC: HO.HOSX 13:25
PROVIDERS: Visit Provider Orthopaedic Surgery
DX: M25.562 Pain in left knee (principal); M25.561 Pain in right knee
CPT/HCPCS: 73560; 73562

== ENCOUNTER → 2024-10-11 13:31 | Outpatient (AMB) | payer OTHER, MEDICAID, SELFPAY ==
[2024-10-11 13:58] VITALS: BMI 44.4
--- NOTE | 2024-10-11 13:58 | MHC.OFFVIS ---
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 States her knee pain started on Sep 17, 2024. Denies injury or recent falls. She is experiencing tinlkging in toes, knee locks when walking, pain with weight bearing and is using a cane to ambulate. Seen in ED 2x where an U/S was dine to R/O blood clots. She was prescribed Naproxen with no relief. 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 She has been seen in the ED twice and was diagnosed on both occasions with a Henderson's cyst. She has discomfort posteriorly in the knee that extends down in the upper calf. She finds it difficult to walk comfortably. She is taking naproxen without benefit. 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 Mild Henderson's cyst left knee with tenderness to palpation proximal calf with no swelling and negative Homans. She has mild tenderness to palpation over the anteromedial joint line bilaterally. She has symmetric 10 degree valgus bilaterally Results Reviewed Results Reviewed: I personally reviewed relevant radiographs. Nwwm-[id number] medial compartment osteoarthritis bilaterally Assessment & Plan Assessment & Plan (1) Henderson's cyst of knee: Code(s): M71.20 - Synovial cyst of popliteal space [Henderson], unspecified knee Category: Medical Qualifiers: Laterality: left Qualified Code(s): M71.22 - Synovial cyst of popliteal space [Henderson], left knee Plan: This is a 44-year-old woman with a Henderson's see it cyst of the left knee. She does have some underlying mild arthritis. I discussed with her the findings and recommend continue NSAIDs and activity as tolerated. Should her knee pain worsens she can return to see me but at this time there is no intervention warranted. Orders: Orders XR knee LT 3V Today M25.562 - Pain in left knee Coding Level of Care Code New Pt Level 3 (82749) Diagnoses Henderson's cyst of knee M71.22 Laterality: left
== END ==
PROVIDERS: PCP Internal Medicine; Visit Provider Orthopaedic Surgery
DX: M71.22 Synovial cyst of popliteal space [Baker], left knee (principal)
CPT/HCPCS: 99203